=== PATIENT | male | born 1965 | race Caucasian/White ===

== ENCOUNTER 2017-11-09 08:25 | Day surgery (SDC) | payer BC ==
[2017-11-07 10:29] VITALS: BMI 36.0
[~2017-11-09 08:25] MED LIST: LACTATED RINGERS 1,000 ML IV SCH
[2017-11-09] MEDS ORDERED: LIDOCAINE 1% 20 ML VIAL (10MG/ML) FOR IV START INTRADERMA ONE (08:33)
[2017-11-09 08:45] VITALS: TEMP 97.6
[2017-11-09] MEDS ORDERED: LIDOCAINE 1% INJ 10MG/ML (20 ML MDV) ONE (09:19)
[2017-11-09] MEDS ORDERED: PROPOFOL 10 MG/ML 20 ML VIAL IV ONE (09:19)
--- NOTE | 2017-11-09 09:56 | P.PCN ---
Date of Procedure: 11/09/17 Procedure(s) Performed: BRIEF HISTORY: Patient is a 52-year-old pleasant white male, scheduled for an elective colonoscopy as a part of screening for colorectal neoplasia. PROCEDURE PERFORMED: Colonoscopy with snare polypectomy/resolution clip placement.. PREOPERATIVE DIAGNOSIS: Screening for colon cancer. IV sedation per Anesthesia. PROCEDURE: After informed consent was obtained, the patient, was brought into the endoscopy unit. IV sedation was administered by Anesthesia under continuous monitoring. Digital rectal examination was normal. Initially the Olympus CF- 160 flexible video colonoscope was then inserted in the rectum, gradually advanced into the cecum without any difficulty. Careful examination was performed as the scope was gradually being withdrawn. Ileocecal valve and the appendiceal orifice were visualized and appeared normal. Prep was excellent. Mucosa of the cecum, ascending colon, transverse colon, descending colon, appeared normal. In the proximal sigmoid colon at 40 cm from the anal verge, there was a 2.5 cm pedunculated polyp that was removed by snare polypectomy. Following the polypectomy there was some oozing identified and hence resolution clip was placed with good hemostasis. sigmoid colon, and rectum appeared normal. Retroflexion was performed in the rectum and no lesions were seen. The patient tolerated the procedure well. IMPRESSION: 2.5 cm pedunculated proximal sigmoid colon polyp status post polypectomy/ resolution clip placement Rest of the colon appeared normal RECOMMENDATIONS: Findings of this examination were discussed with the patient as well as his family. He was advised to follow with the biopsy results. If the biopsy shows a tubular adenoma he can have a repeat colonoscopy in 3 years.
[2017-11-09 10:08] VITALS: BP 129/80; PULSE 64; RESP 18
== END 2017-11-09 10:36 | disposition home or self-care (01) ==
LOC: ORWHC2ENDO 08:25
PROVIDERS: ATTEND Internal Medicine Gastroenterology
DX: Z12.11 Encounter for screening for malignant neoplasm of colon (principal); D12.5 Benign neoplasm of sigmoid colon; G47.33 Obstructive sleep apnea (adult) (pediatric); Z99.89 Dependence on other enabling machines and devices; Z88.0 Allergy status to penicillin
CPT/HCPCS: 88305; 45385; J2001; J2704; 45382

== ENCOUNTER 2018-08-23 12:07 | Inpatient (IN) | payer BC ==
[2018-08-23 13:18] LABS: Basophils # (A) 0.1 k/uL (0-0.2); Basophils % (A) 1 %; Eosinophils # (A) 0.3 k/uL (0-0.7); Eosinophils % (A) 3 %; HCT 47.4 % (39.0-53.0); HGB 15.5 gm/dL (13.0-17.5); Lymphocytes # (A) 1.3 k/uL (1.0-4.8); Lymphocytes % (A) 15 %; MCH 28.8 pg (25.0-35.0); MCHC 32.8 g/dL (31.0-37.0); MCV 87.9 fL (80.0-100.0); Monocytes # (A) 0.5 k/uL (0-1.0); Monocytes % (A) 6 %; Neutrophils # (A) 6.4 k/uL (1.3-7.7); Neutrophils % (A) 75 %; Platelet Count 214 k/uL (150-450); RBC 5.39 m/uL (4.30-5.90); RDW 13.5 % (11.5-15.5); WBC 8.6 k/uL (3.8-10.6)
[2018-08-23 13:32] LABS: ALT 283 U/L (21-72); AST 381 U/L (17-59); Alkaline Phosphatase 40 U/L (38-126); Anion Gap 5 mmol/L; Blood Urea Nitrogen 18 mg/dL (9-20); Calcium 9.3 mg/dL (8.4-10.2); Carbon Dioxide 27 mmol/L (22-30); Chloride 107 mmol/L (98-107); Glucose 94 mg/dL (74-99); Potassium 4.5 mmol/L (3.5-5.1); Sodium 139 mmol/L (137-145); Total Protein 6.9 g/dL (6.3-8.2)
[2018-08-23 14:10] LABS: Partial Thromboplastin Time 23.6 sec (22.0-30.0); Prothrombin Time 10.2 sec (9.0-12.0)
--- NOTE | 2018-08-23 14:37 | ED ---
Recheck HPI <Cristino Jackson - Last Filed: 08/23/18 15:05> - General Source: patient, RN notes reviewed Mode of arrival: ambulatory Limitations: no limitations <Javier Rose - Last Filed: 08/23/18 15:12> - General Chief Complaint: Recheck/Abnormal Lab/Rx Stated Complaint: abn labs Time Seen by Provider: 08/23/18 13:32 - History of Present Illness Initial Comments: 53-year-old male presents emergency Department chief complaint of abnormal labs. Patient states that over the last 4-6 week she's felt fatigued states that muscle aches and does not have the energy used to have. Patient states her menses PCP on Sunday had lab work drawn and notified today that he had elevated liver enzymes and elevated CK. Patient states that he was placed on awake possibly around this time but states he has not recently been taken it. Patient denies any medications for cholesterol including any statin. He does take a multivitamin. Patient denies any history of autoimmune disease. Denies any history of liver disease. Patient states that he noticed that at work he does not have his usual strength equal times fatigued very early and also when he is trying to work out. Patient denies any supplements including pre or postwork out medications. (Javier Rose) - Related Data Home Medications Medication Instructions Recorded Confirmed Hemp Oil 2 dropper SL DAILY 08/23/18 08/23/18 Ibuprofen [Motrin Ib] 800 mg PO Q6H PRN 08/23/18 08/23/18 Naproxen Sodium [Aleve] 440 mg PO DAILY PRN 08/23/18 08/23/18 Allergies Allergy/AdvReac Type Severity Reaction Status Date / Time Penicillins Allergy Rash/Hives Verified 08/23/18 14:20 Review of Systems ROS Other: All systems not noted in ROS Statement are negative. <Cristino Jackson - Last Filed: 08/23/18 15:05> ROS Other: All systems not noted in ROS Statement are negative. <Javier Rose - Last Filed: 08/23/18 15:12> ROS Statement: Those systems with pertinent positive or pertinent negative responses have been documented in the HPI. Past Medical History Past Medical History: Osteoarthritis (OA), Sleep Apnea/CPAP/BIPAP Additional Past Medical History / Comment(s): blood in stool, "staph in infection after knee surgery at age 20" does not know what organism History of Any Multi-Drug Resistant Organisms: None Reported Past Surgical History: Back Surgery, Hernia Repair, Orthopedic Surgery Additional Past Surgical History / Comment(s): shruthi knee "partial replacements", total 5 knee surgeries, growth from throat removed, cyst removed from back Past Anesthesia/Blood Transfusion Reactions: No Reported Reaction Past Psychological History: No Psychological Hx Reported Smoking Status: Former smoker - Past Family History Mother Family Medical History: Pulmonary Embolus <Javier Rose - Last Filed: 08/23/18 15:12> General Exam Limitations: no limitations General appearance: alert, in no apparent distress Head exam: Present: atraumatic, normocephalic, normal inspection Eye exam: Present: normal appearance, PERRL, EOMI. Absent: scleral icterus, conjunctival injection, periorbital swelling ENT exam: Present: normal exam, normal oropharynx, mucous membranes moist Neck exam: Present: normal inspection. Absent: tenderness, meningismus, lymphadenopathy Respiratory exam: Present: normal lung sounds bilaterally. Absent: respiratory distress, wheezes, rales, rhonchi, stridor Cardiovascular Exam: Present: regular rate, normal rhythm, normal heart sounds. Absent: systolic murmur, diastolic murmur, rubs, gallop, clicks GI/Abdominal exam: Present: soft, normal bowel sounds. Absent: distended, tenderness, guarding, rebound, rigid Neurological exam: Present: alert, oriented X3, CN II-XII intact Skin exam: Present: warm, dry, intact, normal color. Absent: rash <Javier Rose - Last Filed: 08/23/18 15:12> Course <Cristino Jackson - Last Filed: 08/23/18 15:05> <Javier Rose - Last Filed: 08/23/18 15:12> Vital Signs 08/23/18 12:43 Temperature 98.2 F Pulse Rate 77 Respiratory 16 Rate Blood Pressure 148/82 O2 Sat by Pulse 96 Oximetry - Reevaluation(s) Reevaluation #1: 08/23/18 15:05 PA supervision: I personally evaluate the patient and did discuss findings with him he states he had increased EKG and liver enzymes he's had fatigue over last several weeks he was advised doctor for further evaluation is found to be in rhabdomyolysis today. The etiology is unclear he will be admitted. Case is discussed with Dr. Coughlin. (Cristino Jackson) Medical Decision Making - Lab Data Result diagrams: 08/23/18 12:59 08/23/18 12:59 <Cristino Jackson - Last Filed: 08/23/18 15:05> - Lab Data Result diagrams: 08/23/18 12:59 08/23/18 12:59 <Javier Rose - Last Filed: 08/23/18 15:12> - Medical Decision Making 53-year-old male present emergency from for elevated CK and liver enzymes. Patient's CK is elevated from 7000 - 9000 since Sunday. Patient will be hydrated and admitted at this time. (Javier Rose) - Lab Data Lab Results 08/23/18 08/23/18 08/23/18 Range/Units 12:59 12:59 12:59 WBC 8.6 (3.8-10.6) k/uL RBC 5.39 (4.30-5.90) m/uL Hgb 15.5 (13.0-17.5) gm/dL Hct 47.4 (39.0-53.0) % MCV 87.9 (80.0-100.0) fL MCH 28.8 (25.0-35.0) pg MCHC 32.8 (31.0-37.0) g/dL RDW 13.5 (11.5-15.5) % Plt Count 214 (150-450) k/uL Neutrophils % 75 % Lymphocytes % 15 % Monocytes % 6 % Eosinophils % 3 % Basophils % 1 % Neutrophils # 6.4 (1.3-7.7) k/uL Lymphocytes # 1.3 (1.0-4.8) k/uL Monocytes # 0.5 (0-1.0) k/uL Eosinophils # 0.3 (0-0.7) k/uL Basophils # 0.1 (0-0.2) k/uL PT (9.0-12.0) sec INR (<1.2) APTT (22.0-30.0) sec Sodium 139 (137-145) mmol/L Potassium 4.5 (3.5-5.1) mmol/L Chloride 107 (98-107) mmol/L Carbon Dioxide 27 (22-30) mmol/L Anion Gap 5 mmol/L BUN 18 (9-20) mg/dL Creatinine 0.81 (0.66-1.25) mg/dL Est GFR (CKD-EPI)AfAm >90 (>60 ml/min/1.73 sqM) Est GFR (CKD-EPI)NonAf >90 (>60 ml/min/1.73 sqM) Glucose 94 (74-99) mg/dL Calcium 9.3 (8.4-10.2) mg/dL Total Bilirubin 1.0 (0.2-1.3) mg/dL AST 381 H (17-59) U/L ALT 283 H (21-72) U/L Alkaline Phosphatase 40 (38-126) U/L Creatine Kinase 9067 H* (55-170) U/L C-Reactive Protein (<10.0) mg/L Total Protein 6.9 (6.3-8.2) g/dL Albumin 4.0 (3.5-5.0) g/dL Hepatitis A IgM Ab 08/23/18 08/23/18 08/23/18 Range/Units 12:59 12:59 13:56 WBC (3.8-10.6) k/uL RBC (4.30-5.90) m/uL Hgb (13.0-17.5) gm/dL Hct (39.0-53.0) % MCV (80.0-100.0) fL MCH (25.0-35.0) pg MCHC (31.0-37.0) g/dL RDW (11.5-15.5) % Plt Count (150-450) k/uL Neutrophils % % Lymphocytes % % Monocytes % % Eosinophils % % Basophils % % Neutrophils # (1.3-7.7) k/uL Lymphocytes # (1.0-4.8) k/uL Monocytes # (0-1.0) k/uL Eosinophils # (0-0.7) k/uL Basophils # (0-0.2) k/uL PT 10.2 (9.0-12.0) sec INR 1.0 (<1.2) APTT 23.6 (22.0-30.0) sec Sodium (137-145) mmol/L Potassium (3.5-5.1) mmol/L Chloride (98-107) mmol/L Carbon Dioxide (22-30) mmol/L Anion Gap mmol/L BUN (9-20) mg/dL Creatinine (0.66-1.25) mg/dL Est GFR (CKD-EPI)AfAm (>60 ml/min/1.73 sqM) Est GFR (CKD-EPI)NonAf (>60 ml/min/1.73 sqM) Glucose (74-99) mg/dL Calcium (8.4-10.2) mg/dL Total Bilirubin (0.2-1.3) mg/dL AST (17-59) U/L ALT (21-72) U/L Alkaline Phosphatase (38-126) U/L Creatine Kinase (55-170) U/L C-Reactive Protein <5.0 (<10.0) mg/L Total Protein (6.3-8.2) g/dL Albumin (3.5-5.0) g/dL Hepatitis A IgM Ab NEGATIVE Disposition <Cristino Jackson - Last Filed: 08/23/18 15:05> <Javier Rose - Last Filed: 08/23/18 15:12> Clinical Impression: Rhabdomyolysis, Elevated LFTs Disposition: ADMITTED IP TO THIS HOSP Condition: Fair Referrals: Pamela Aguilar DO [Primary Care Provider] - 1-2 days
[2018-08-23] MEDS ORDERED: SODIUM CHLORIDE 0.9% 2,000 ML IV ONE (14:49)
[2018-08-23 14:50] LABS: Hepatitis A AB IgM Index 0.01; Hepatitis A Antibody IgM NEGATIVE
[2018-08-23] MEDS ORDERED: SODIUM CHLORIDE 0.9% 1,000 ML IV SCH (15:00)
[2018-08-23] MEDS ORDERED: NALOXONE 0.4 MG/ML 1 ML VIAL IV PRN ×2 (15:13→21:03)
[2018-08-23 19:05] VITALS: BMI 34.4
[2018-08-23] MEDS ORDERED: MAGNESIUM HYDROXIDE 2,400 MG/10 ML CUP PO PRN (21:03)
[2018-08-23] MEDS ORDERED: LACTULOSE 20 GM/30 ML CUP PO PRN (21:03)
[2018-08-23] MEDS ORDERED: CALCIUM CARBONATE 500 MG CHEWABLE PO PRN (21:03)
[2018-08-23] MEDS: traMADol 50 MG TAB PO PRN (21:14)
[2018-08-23] MEDS: FUROSEMIDE 20 MG TAB PO SCH (21:14)
[2018-08-23] MEDS: LACTATED RINGERS 1,000 ML IV SCH (21:16)
[2018-08-23] MEDS: MELATONIN 3 MG TABLET PO PRN (22:19)
[2018-08-23] MEDS: NAPROXEN 250 MG TAB PO SCH (22:19)
--- NOTE | 2018-08-23 22:42 | HP ---
HISTORY AND PHYSICAL DATE OF ADMISSION: 08/23/2018 PRESENTING COMPLAINT: Achiness all over. HISTORY OF PRESENTING COMPLAINT: This is a very pleasant 53-year-old patient of Dr. Pamela Aguilar. Patient has been in good health otherwise. He is here with his . Patient for about a month has been noticing that his muscle ache. Initially it used to be his thighs; now also upper extremities. Patient gets tired rather easily. He used to work out, but he feels that he gets easily fatigued. Therefore he got his blood work checked, was found to have a CPK of over 9000. Hence he was sent in for the same. The patient has obstructive sleep apnea but is not able use his mask for more than one hour typically and does not sleep well and is rather sleep-deprived. The patient was admitted with acute rhabdomyolysis. He denies taking any protein supplements. Denies any other medical problems. REVIEW OF SYSTEMS: CONSTITUTIONAL: Tired. HEENT: None. RESPIRATORY: None. CARDIOVASCULAR: None. GASTROINTESTINAL: Bloats easily. GENITOURINARY: None. MUSCULOSKELETAL: Aches and pains in the muscles. DERMATOLOGICAL: None. HEMATOLOGICAL: None. LYMPHATICS: None. PSYCHIATRY: None. NEUROLOGICAL: None. PAST MEDICAL HISTORY: 1. Osteoarthritis. 2. Obstructive sleep apnea. PAST SURGICAL HISTORY: 1. Back surgery. 2. Hernia repair. 3. Bilateral partial knee replacement. 4. Total 5 knee surgeries. SOCIAL HISTORY: Does not smoke. Alcohol occasionally. Patient is a norberto by trade. . FAMILY HISTORY: PE, vascular disorder. HOME MEDICATIONS: 1. Naproxen p.r.n. 2. Hemp oil. ALLERGIES: PENICILLIN. PHYSICAL EXAMINATION: Temperature 98.6, pulse 70, respiration 18, blood pressure 110/70, pulse ox 95% on room air. GENERAL APPEARANCE: Well built; BMI 34.5. Sitting up. Tired-appearing. EYES: Pupils equal. Conjunctivae normal. HEENT: External appearance of nose and ears normal. Oral cavity normal. Patient has bags under his eyes. NECK: JVD not raised. Mass not palpable. RESPIRATORY: Effort normal. Lungs are clear. CARDIOVASCULAR: First and second sounds normal. No edema. ABDOMEN: Soft, non-tender. Liver and spleen not palpable. LYMPHATIC: No lymph node palpable in neck or axillae. PSYCHIATRY: Alert and oriented x3. Mood and affect normal. NEUROLOGICAL: Pupils equal. Cranial nerves grossly intact. Power and sensation grossly intact. INVESTIGATIONS: White count 8.6, hemoglobin 15.5, potassium 4.5. BUN and creatinine are normal. AST 381, ALT 383. CPK 9067. ASSESSMENT: 1. Acute rhabdomyolysis, probably on chronic, from a patient who does Pearl[employer] work. I do not see any other secondary factor for the same. Patient's oral intake of fluids is rather low; that may be contributing. 2. Hepatitis, type unknown at this point. 3. Obstructive sleep apnea. Not able to use his mask well. 4. Obesity; body mass index 34.5. 5. Sleep deprivation causing some exhaustion. PLAN: At this point we will start patient on LR at 250 mL/hour. Will also add Lasix 20 mg twice a day for better flushing of the kidneys. Will do a liver ultrasound and also do a hepatitis profile. I did talk to him about changing his face mask eventually. Lovenox for DVT prophylaxis. Patient will probably need to stay in the hospital for at least 2 nights. MMODL / IJN: [id number] /
[2018-08-24] MEDS: LACTATED RINGERS 1,000 ML IV SCH ×6 (01:38→21:15)
[2018-08-24 04:44] LABS: Hepatitis B Core IgM Non-Reactive (Non-Reactive)
[2018-08-24] MEDS: traMADol 50 MG TAB PO PRN (04:52)
--- NOTE | 2018-08-24 08:55 | US ---
EXAMINATION TYPE: US abdomen limited DATE OF EXAM: 08/24/2018 COMPARISON: NONE CLINICAL HISTORY: elevated liver enzymes. larger habitus EXAM MEASUREMENTS: Liver Length: 19.8 cm Gallbladder Wall: 0.3 cm CBD: 0.5 cm Right Kidney: 12.7 x 5.2 x 6.4 cm Pancreas: Obscured by bowel gas Liver: attenuating, sparing by bonifacio, hepatomegaly Gallbladder: wnl Evidence for sonographic Kimball's sign: no CBD: wnl Right Kidney: seen with a non-shadowing 6mm echogenic foci within the upper pole The pancreas was not visualized. The liver is prominent measuring 20 cm and is attenuating and may be fatty infiltrated. The gallbladder is unremarkable. The gallbladder wall measures 3 mm. The distal common hepatic duct m easures 5 mm. There is no sonographic Kimball's sign. There is a 6 mm nonobstructing calculus in the upper pole of the right kidney. IMPRESSION: 1. MILD HEPATOMEGALY AND FATTY INFILTRATION OF THE LIVER. 2. NONOBSTRUCTING RIGHT-SIDED NEPHROLITHIASIS.
[2018-08-24] MEDS: FUROSEMIDE 20 MG TAB PO SCH ×2 (09:13→16:35)
[2018-08-24] MEDS: NAPROXEN 250 MG TAB PO SCH ×2 (09:14→16:35)
[2018-08-24] MEDS: ENOXAPARIN 40 MG/0.4 ML SYRINGE SQ SCH (09:15)
[2018-08-24 18:47] LABS: Hepatitis B Surface AB- Quant 3.5 mIU/mL; Hepatitis C IgG Antibody Non-Reactive (Non-Reactive)
[2018-08-24] MEDS: MELATONIN 3 MG TABLET PO PRN (21:10)
--- NOTE | 2018-08-24 22:04 | PN ---
PROGRESS NOTE DATE OF SERVICE: August 24, 2018. PRESENTING COMPLAINT: Achy muscle. INTERVAL HISTORY: The patient presented with acute rhabdomyolysis, is on high IV fluids, Lasix, muscle aching is a bit better. CPK started to come down. Did tolerate a diet. REVIEW OF SYSTEMS: Done for constitutional, cardiovascular, GI, pulmonary, musculoskeletal and relevant findings as above. CURRENT MEDICATIONS: Include Lasix 20 mg p.o. b.i.d., and IV fluids at 250 mL an hour. PHYSICAL EXAMINATION: VITAL SIGNS: Temperature 97, pulse 73, respiratory rate 20, blood pressure 105/69, pulse ox 95% on room air. GENERAL APPEARANCE: Sitting up, comfortable. EYES: Pupils equal. Conjunctivae normal. HEENT: External appearance of nose and ears normal. Oral cavity normal. NECK: JVD not raised. Mass not palpable. RESPIRATORY: Effort normal. LUNGS are clear. CARDIOVASCULAR: 1st and 2nd sounds normal. No edema. ABDOMEN: Soft. Nontender. Liver and spleen not palpable. PSYCHIATRY: Alert and oriented x3. Mood and affect normal. INVESTIGATIONS: CPK 5317. Hepatitis screen nonreactive. Liver ultrasound shows fatty infiltration and nonobstructive right-sided nephrolithiasis. ASSESSMENT: 1. Acute rhabdomyolysis, slow to respond. 2. Hepatic steatosis. 3. Nonobstructive right-sided nephrolithiasis. 4. Obstructive sleep apnea, not able to use his mask well. 5. Sleep deprivation causing some exhaustion. PLAN: I had a lengthy talk with the patient's again today. We will put the patient on a heart healthy diet to restrict calories. Also have a dietitian see him for weight loss measures. We will have him see Gastroenterology after discharge. In the meantime, continue with heavy IV fluids. Repeat CPK again. Questions were answered. MMODL / IJN: [id number] /
[2018-08-25] MEDS: LACTATED RINGERS 1,000 ML IV SCH ×6 (03:35→21:01)
[2018-08-25] MEDS: traMADol 50 MG TAB PO PRN (06:49)
[2018-08-25] MEDS: NAPROXEN 250 MG TAB PO SCH ×2 (08:01→18:43)
[2018-08-25] MEDS: FUROSEMIDE 20 MG TAB PO SCH ×2 (08:01→15:16)
[2018-08-25] MEDS: ENOXAPARIN 40 MG/0.4 ML SYRINGE SQ SCH (08:01)
[2018-08-25 08:54] LABS: ALT 244 U/L (21-72); AST 284 U/L (17-59); Albumin 3.5 g/dL (3.5-5.0); Alkaline Phosphatase 39 U/L (38-126); Anion Gap 4 mmol/L; Blood Urea Nitrogen 14 mg/dL (9-20); Calcium 8.8 mg/dL (8.4-10.2); Carbon Dioxide 30 mmol/L (22-30); Chloride 106 mmol/L (98-107); Glucose 119 mg/dL (74-99); Potassium 4.3 mmol/L (3.5-5.1); Sodium 140 mmol/L (137-145); Total Bilirubin 1.1 mg/dL (0.2-1.3); Total Protein 6.3 g/dL (6.3-8.2)
[2018-08-25 09:21] LABS: Creatine Kinase 5496 U/L (55-170)
--- NOTE | 2018-08-25 21:50 | PN ---
PROGRESS NOTE DATE OF SERVICE: 08/25/2018. PRESENTING COMPLAINT: Aching. INTERVAL HISTORY: This patient presented with acute rhabdomyolysis. Remains on IV fluids. Achiness in the muscles still present. Also got fatty liver. REVIEW OF SYSTEMS: Done for constitutional, cardiovascular, GI, pulmonary; relevant findings as above. CURRENT MEDICATIONS: Reviewed, that include IV fluids and p.o. Lasix. PHYSICAL EXAMINATION: Temperature 97.9, pulse 61, respirations 16, blood pressure 124/82, pulse ox 96% on room air. GENERAL APPEARANCE: Sitting up in a chair, comfortable. EYES: Pupils are equal. Conjunctivae normal. HEENT: External appearance of nose and ears normal. Oral cavity normal. NECK: JVD not raised. Mass not palpable. Respiratory effort normal. LUNGS: Clear. CARDIOVASCULAR: 1st and 2nd heart sounds. No edema. ABDOMEN: Soft, nontender. Liver and spleen not palpable. PSYCHIATRY: Alert and oriented x3. Mood and affect normal. INVESTIGATIONS: AST 284, ALT 244. CPK is 5496. ASSESSMENT: 1. Acute rhabdomyolysis, slow to respond. 2. Hepatic steatosis. 3. Nonobstructive right-sided nephrolithiasis. 4. Obstructive sleep apnea, not able to use his mask well. 5. Sleep deprivation causing some exhaustion. I had a lengthy talk again with the patient and explained to him what is going on and told him this is the current treatment. Follow labs closely. KARELY / BALTAN: [id number] /
[2018-08-25] MEDS: MELATONIN 3 MG TABLET PO PRN (22:01)
[2018-08-26] MEDS: LACTATED RINGERS 1,000 ML IV SCH ×7 (05:34→23:06)
[2018-08-26] MEDS: ENOXAPARIN 40 MG/0.4 ML SYRINGE SQ SCH (07:58)
[2018-08-26] MEDS: FUROSEMIDE 20 MG TAB PO SCH ×2 (07:59→17:36)
[2018-08-26] MEDS: NAPROXEN 250 MG TAB PO SCH (07:59)
[2018-08-26 09:45] LABS: Anion Gap 4 mmol/L; Blood Urea Nitrogen 14 mg/dL (9-20); Calcium 8.8 mg/dL (8.4-10.2); Sodium 140 mmol/L (137-145)
[2018-08-26 10:14] LABS: Carbon Dioxide 30 mmol/L (22-30); Chloride 106 mmol/L (98-107); Glucose 120 mg/dL (74-99); Potassium 4.1 mmol/L (3.5-5.1)
[2018-08-26 10:38] LABS: Creatine Kinase 5492 U/L (55-170)
[2018-08-26 13:52] LABS: Basophils # (A) 0.1 k/uL (0-0.2); Basophils % (A) 1 %; Eosinophils # (A) 0.2 k/uL (0-0.7); Eosinophils % (A) 3 %; HCT 46.1 % (39.0-53.0); HGB 14.8 gm/dL (13.0-17.5); Lymphocytes # (A) 0.9 k/uL (1.0-4.8); Lymphocytes % (A) 19 %; MCH 28.6 pg (25.0-35.0); MCHC 32.1 g/dL (31.0-37.0); MCV 89.2 fL (80.0-100.0); Mean Platelet Volume 6.5; Monocytes # (A) 0.3 k/uL (0-1.0); Monocytes % (A) 7 %; Neutrophils # (A) 3.3 k/uL (1.3-7.7); Neutrophils % (A) 68 %; Platelet Count 196 k/uL (150-450); RBC 5.17 m/uL (4.30-5.90); RDW 13.3 % (11.5-15.5); WBC 4.9 k/uL (3.8-10.6)
[2018-08-26 14:34] LABS: ALT 241 U/L (21-72); AST 286 U/L (17-59); Albumin 3.5 g/dL (3.5-5.0); Alkaline Phosphatase 44 U/L (38-126); C Reactive Protein 5.4 mg/L (<10.0); Total Bilirubin 0.9 mg/dL (0.2-1.3); Total Protein 6.2 g/dL (6.3-8.2); Uric Acid 7.3 mg/dL (3.5-8.5)
[2018-08-26 14:55] LABS: LDH 2356 U/L (313-618)
[2018-08-26 15:38] LABS: Appearance,Urine Clear (Clear); Bilirubin,Urine Negative (Negative); Blood,Urine Trace (Negative); Color,Urine Light Yellow; Glucose,Urine (UA) Negative (Negative); Ketones,Urine Negative (Negative); Leukocyte Esterase,Urine Negative (Negative); Nitrite,Urine Negative (Negative); PH, Urine 7.5 (5.0-8.0); Protein,Urine Negative (Negative); RBC,Urine 1 /hpf (0-5); Specific Gravity,Urine 1.006 (1.001-1.035); Urobilinogen,Urine <2.0 mg/dL (<2.0); WBC,Urine <1 /hpf (0-5)
--- NOTE | 2018-08-26 16:30 | P.CONS ---
History of Present Illness - Reason for Consult Consult date: 08/26/18 elevated muscle enzymes Requesting physician: Homero Coughlin - Chief Complaint weakness, fatigue - History of Present Illness Patient is seen today's inpatient consult for elevated creatine kinase and liver enzymes. Patient is a 53-year-old male who presented to the emergency room after seeing primary care for weakness and fatigue is ongoing for the past 4-6 weeks. 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 Patient had laboratory done by primary care doctor she'll and was sent to ER on August 23. Patient has not been on a statin. Patient generally does not have joint complaints or issues with stiffness or swelling. Patient does take Motrin and Aleve as necessary for pain relief and hasn't taken them for the past 4-6 weeks has not had any relief of these new symptoms with Motrin or Aleve. Patient does have a history of left knee repair x 5 but no replacement. Review of Systems Musculoskeletal: Reports muscle weakness, Reports neck stiffness Past Medical History Past Medical History: Osteoarthritis (OA), Sleep Apnea/CPAP/BIPAP Additional Past Medical History / Comment(s): blood in stool, "staph in infection after knee surgery at age 20" does not know what organism History of Any Multi-Drug Resistant Organisms: None Reported Past Surgical History: Back Surgery, Hernia Repair, Orthopedic Surgery Additional Past Surgical History / Comment(s): shruthi knee "partial replacements", total 5 knee surgeries, growth from throat removed, cyst removed from back Past Anesthesia/Blood Transfusion Reactions: No Reported Reaction Past Psychological History: No Psychological Hx Reported Smoking Status: Former smoker Past Alcohol Use History: Occasional Additional Past Alcohol Use History / Comment(s): quit smoking 20 yrs ago, smoked for a couple yrs, < 1 PPD Past Drug Use History: None Reported - Past Family History Mother Family Medical History: Pulmonary Embolus, Vascular Disorder Additional Family Medical History / Comment(s): mother and father Medications and Allergies Home Medications Medication Instructions Recorded Confirmed Type Hemp Oil 2 dropper SL DAILY 08/23/18 08/23/18 History Ibuprofen [Motrin Ib] 800 mg PO Q6H PRN 08/23/18 08/23/18 History Naproxen Sodium [Aleve] 440 mg PO DAILY PRN 08/23/18 08/23/18 History Allergies Allergy/AdvReac Type Severity Reaction Status Date / Time Penicillins Allergy Rash/Hives Verified 08/23/18 14:20 Physical Exam Vitals: Vital Signs Temp Pulse Resp BP Pulse Ox 08/26/18 08:00 16 08/26/18 07:00 97.7 F 70 16 133/86 97 08/25/18 23:42 98.7 F 83 14 136/85 95 08/25/18 15:55 97.9 F 61 16 124/82 96 08/25/18 15:54 16 Intake and Output 08/25/18 08/26/18 08/26/18 22:59 06:59 14:59 Other: # Voids 2 4 - Constitutional General appearance: average body habitus - Respiratory Respiratory: right: CTA - Cardiovascular Rhythm: regular Heart sounds: normal: S1, S2 - Musculoskeletal surgical scar on left knee medial aspect Musculoskeletal: strength equal bilaterally (no evidence of synoviits.) - Psychiatric Psychiatric: A&O x's 3 Results CBC & Chem 7: 08/26/18 08:29 08/26/18 08:29 Labs: Abnormal Lab Results - Last 24 Hours (Table) 08/26/18 Range/Units 08:29 Glucose 120 H (74-99) mg/dL Creatine Kinase 5492 H* (55-170) U/L Assessment and Plan Assessment: On physical exam resolving evidence of synovitis. Patient does have surgical scar of left knee. Patient does have equal strength bilateral upper and lower extremities and is able to stand from seated position without using any other support. On presentation in the ER patient's CK was elevated 9067 which has improved to 5000 492. Patient's AST was elevated 381 and AST elevated 23 in the ER and AST has recently improved to 84 and ALT has improved to 244. Patient's creatinine has been normal and most recently 0.76. Hepatitis panel was negative. CRP was normal. Patient has been on Lasix and lactated Ringer's through internal medicine. (1) Rhabdomyolysis Current Visit: Yes Status: Acute Priority: High Code(s): M62.82 - RHABDOMYOLYSIS SNOMED Code(s): 782664771 (2) Elevated LFTs Current Visit: Yes Status: Acute Priority: High Code(s): R94.5 - ABNORMAL RESULTS OF LIVER FUNCTION STUDIES SNOMED Code(s): 502786027 (3) Weakness Current Visit: Yes Status: Acute Code(s): R53.1 - WEAKNESS SNOMED Code(s) : 70348936 (4) Arthritis, multiple joint involvement Current Visit: Yes Status: Chronic Code(s): M12.9 - ARTHROPATHY, UNSPECIFIED SNOMED Code(s): 86833968 Plan: Today I'll order complete panel which includes aldolase and ESR and we'll also order myositis antibody testing, to rule out myositis or polymyalgia rheumatica or other connective tissue disease. Patient will certainly need EMG and muscle biopsy and this can be done as outpatient. Labs may take up to 2 weeks to return and patient may be discharged when appropriate per internal medicine and based on muscle biopsy or lab results may follow-up with our office as outpatient. Patient should be continued on LR and Lasix. Time with Patient: Greater than 30
[2018-08-26 16:34] LABS: Erythrocyte Sedimentation Rate 2 mm/hr (0-15)
--- NOTE | 2018-08-26 17:36 | PN ---
PROGRESS NOTE DATE OF SERVICE: 08/26/2018 PRESENTING COMPLAINT: Aching muscles. INTERVAL HISTORY: This patient presented with acute on chronic rhabdomyolysis from excessive muscle use. He is a norberto. IV fluids were increased yesterday. Achiness is still present, though it feels a bit better. His is at the bedside. He is making good urine. REVIEW OF SYSTEMS: Done for constitutional, cardiovascular, GI, pulmonary; relevant findings as above. CURRENT MEDICATIONS: Reviewed. They include lactated Ringer's and p.o. Lasix. PHYSICAL EXAMINATION: Temperature 98.2, pulse 71, respiration 18, blood pressure 127/85, pulse ox 96% on room air. GENERAL APPEARANCE: Sitting up on a chair, comfortable. EYES: Pupils equal. Conjunctivae normal. HEENT: External appearance of nose and ears normal. Oral cavity normal. NECK: JVD not raised. Mass not palpable. RESPIRATORY: Effort normal. Lungs are clear. CARDIOVASCULAR: First and second sounds normal. No edema. ABDOMEN: Soft, non-tender. Liver and spleen not palpable. PSYCHIATRY: Alert and oriented x3. Mood and affect normal. MUSCULOSKELETAL: Minimal muscle tenderness. INVESTIGATIONS: White count 4.9, hemoglobin 14.8, potassium 4.1. BUN and creatinine are normal. CPK is 5492. LDH is 2356. UA is showing trace blood, RBCs 1. Urine specific gravity is 1.006. ASSESSMENT: 1. Acute rhabdomyolysis from chronic muscle overuse, still responding. 2. Hepatic steatosis. 3. Nonobstructive right-sided nephrolithiasis. 4. Obstructive sleep apnea. Not able to use a mask well. 5. Sleep deprivation causing some exhaustion. PLAN: I had a long talk with the patient and his . I did tell them that the IV fluids are helping to keep the CPK low because the muscle overuse has been over quite a period of time. This may take a while before it comes down. Overnight we had increased the IV fluids. We will keep it up for a bit more today, then drop it down. Rheumatology was consulted. They will see the patient today. Of course, patient is anxious to go home. Did explain that there is nothing else to do to hurry this process. MMODL / IJN: [id number] /
[2018-08-26 18:27] LABS: Rheumatoid Factor <4 IU/mL (0-15)
[2018-08-26 20:54] LABS: Centromere Antibody Interp NEGATIVE (NEGATIVE); Cyclic Citrullinated Pep IgG NEGATIVE (NEGATIVE); DNA Double-Stranded NEGATIVE (NEGATIVE); RNP 0.2 AI; Scleroderma SC-70 Ab <0.2 AI
[2018-08-26] MEDS: MELATONIN 3 MG TABLET PO PRN (23:19)
[2018-08-27 04:48] LABS: Aldolase 72.3 U/L (1.2-7.6)
[2018-08-27 04:49] LABS: Angiotensin-1 Converting Enz. 21 U/L (8-52)
[2018-08-27] MEDS: LACTATED RINGERS 1,000 ML IV SCH ×6 (05:14→20:59)
[2018-08-27] MEDS: ENOXAPARIN 40 MG/0.4 ML SYRINGE SQ SCH (08:19)
[2018-08-27 10:37] LABS: APTT 42 Sec(s) (<43); Dilute Russell Viper Venom 38 Sec(s) (<44)
[2018-08-27 10:59] LABS: Anion Gap 5 mmol/L; Blood Urea Nitrogen 13 mg/dL (9-20); Calcium 9.1 mg/dL (8.4-10.2); Carbon Dioxide 28 mmol/L (22-30); Chloride 107 mmol/L (98-107); Glucose 93 mg/dL (74-99); Potassium 4.3 mmol/L (3.5-5.1); Sodium 140 mmol/L (137-145)
[2018-08-27 11:46] LABS: Creatine Kinase 5914 U/L (55-170)
[2018-08-27 12:30] LABS: HLA B27 NEGATIVE
[2018-08-27 13:31] LABS: C-ANCA <1:20 Titer (<1:20); P-ANCA <1:20 Titer (<1:20)
[2018-08-27] MEDS: traMADol 50 MG TAB PO PRN (18:03)
--- NOTE | 2018-08-27 22:34 | PN ---
PROGRESS NOTE DATE OF SERVICE: 08/27/2018 PRESENTING COMPLAINT: Aching muscles. INTERVAL HISTORY: Patient presented with acute on chronic rhabdomyolysis from excessive muscle use as a norberto. Remains on IV fluids, achiness in the muscles still present. The patient's CPK came back later today after I had seen him at 5900. Also patient was seen by Dr. Weinstein from Rheumatology. REVIEW OF SYSTEMS: Done for constitutional, cardiovascular, GI, pulmonary and relevant findings as above. CURRENT MEDICATIONS: Reviewed that are lactated Ringer's. PHYSICAL EXAMINATION: VITAL SIGNS: On examination, temperature afebrile, pulse 69, respirations 16, blood pressure 137/83, pulse 96% on room air. GENERAL APPEARANCE: Sitting up in a chair, comfortable. EYES: Pupils are equal. Conjunctivae normal. HEENT: External appearance of nose and ears normal. Oral cavity normal. NECK: JVD not raised. Mass not palpable. RESPIRATORY: Effort normal. LUNGS are clear. CARDIOVASCULAR: 1st and 2nd sounds normal. No edema. ABDOMEN: Soft, nontender. Liver and spleen not palpable. PSYCHIATRY: Alert and oriented x3. Mood and affect normal. MUSCULOSKELETAL: Minimal muscle tenderness. INVESTIGATIONS: Potassium 4.3, BUN and creatinine is normal. CPK is 5914. The patient's immunological screen that was done by Rheumatology all came back negative. ASSESSMENT: 1. Acute rhabdomyolysis from chronic muscle overuse, slow to respond. 2. Hepatic steatosis. 3. Nonobstructive right-sided nephrolithiasis. 4. Obstructive sleep apnea, not able to use a mask well. 5. Sleep deprivation causing some exhaustion. PLAN: Again I had a lengthy talk with the patient, discussed with him the clinical picture was pretty much as discussed before and that sometimes it just takes a longer time. As his muscles have been damaged for quite a while it may take some time to recover. The only treatment is to give IV fluids and he has already seen a specialist, Dr. Weinstein. MMODL / BALTAN: [id number] /
[2018-08-28] MEDS: LACTATED RINGERS 1,000 ML IV SCH ×8 (00:57→23:35)
[2018-08-28] MEDS: traMADol 50 MG TAB PO PRN ×2 (00:58→15:14)
[2018-08-28] MEDS: ENOXAPARIN 40 MG/0.4 ML SYRINGE SQ SCH (08:51)
[2018-08-28 11:19] LABS: Anion Gap 5 mmol/L; Blood Urea Nitrogen 11 mg/dL (9-20); Carbon Dioxide 29 mmol/L (22-30); Chloride 102 mmol/L (98-107); Glucose 102 mg/dL (74-99); Potassium 4.4 mmol/L (3.5-5.1); Sodium 136 mmol/L (137-145)
[2018-08-28 12:05] LABS: Creatine Kinase 5121 U/L (55-170)
[2018-08-28] MEDS: ACETAMINOPHEN TAB 325 MG TAB PO PRN ×2 (12:30→20:03)
[2018-08-28 13:40] LABS: Urine Alcohol Negative (Negative); Urine Barbiturate Negative (Negative); Urine Cocaine Negative (Negative); Urine Methadone Negative (Negative); Urine Opiates Negative (Negative); Urine Phencyclidine Negative (Negative)
[2018-08-28] MEDS: MELATONIN 3 MG TABLET PO PRN (20:03)
--- NOTE | 2018-08-28 20:20 | PN ---
PROGRESS NOTE DATE OF SERVICE: 08/28/18 PRESENTING COMPLAINT: Aching muscles. INTERVAL HISTORY: This patient who exerted himself as a norberto, symptoms present for a few weeks, presented with acute on chronic rhabdomyolysis. His initial CPK was 9000, did come down to 5000. Patient getting IV fluids. Patient is feeling somewhat better. The patient does not sleep well because underlying sleep apnea. The patient also seen by Dr. Weinstein from Rheumatology. Getting IV fluids. REVIEW OF SYSTEMS: Done for constitutional, cardiovascular, GI, pulmonary, musculoskeletal; relevant findings as above. Some achiness in muscle still present. CURRENT MEDICATIONS: Reviewed include lactated Ringer's at 250 mL an hour. PHYSICAL EXAMINATION: Temperature 98.8, pulse 71, respirations 16, blood pressure 115/61, pulse ox 96% on room air. GENERAL APPEARANCE: Sitting up in a chair, tired-appearing. EYES: Pupils equal. Conjunctivae normal. HEENT: External appearance of nose and ears normal. Oral cavity normal. NECK: JVD not raised. Mass not palpable. RESPIRATORY: Effort normal. Lungs are clear. CARDIOVASCULAR: First and second sounds normal. No edema. ABDOMEN: Soft, nontender. Liver and spleen not palpable. PSYCHIATRY: Alert and oriented x3. Mood and affect normal. INVESTIGATIONS: Potassium 4.4. Creatine kinase is 5121. ASSESSMENT: 1. Acute rhabdomyolysis from chronic muscle overuse, slow to respond. 2. Hepatic steatosis. 3. Nonobstructive right-sided nephrolithiasis. 4. Obstructive sleep apnea, not able to use his mask very well. 5. Sleep deprivation chronically. PLAN: Again I had a lengthy talk with the patient. I did tell him that my comfort zone was about less than 3000 CPK before I could let him go home and just because his muscles have been so affected over a period of time, it may just take some more time to get better. I did tell him depending on the physician who is covering me, the comfort level. The patient understands the same. Repeat CPK in the morning. The patient was seen by Dr. Weinstein from Rheumatology. MMODL / BALTAN: [id number] /
[2018-08-28] MEDS ORDERED: ONDANSETRON 4 MG/2 ML VIAL IVP PRN (20:48)
[2018-08-29] MEDS: ACETAMINOPHEN TAB 325 MG TAB PO PRN ×2 (02:12→08:12)
[2018-08-29] MEDS: LACTATED RINGERS 1,000 ML IV SCH ×3 (02:12→08:13)
[2018-08-29] MEDS: traMADol 50 MG TAB PO PRN (05:43)
[2018-08-29] MEDS: ENOXAPARIN 40 MG/0.4 ML SYRINGE SQ SCH (08:14)
[2018-08-29 09:38] LABS: Anion Gap 5 mmol/L; Blood Urea Nitrogen 11 mg/dL (9-20); Calcium 8.8 mg/dL (8.4-10.2); Carbon Dioxide 29 mmol/L (22-30); Chloride 105 mmol/L (98-107); Glucose 113 mg/dL (74-99); Potassium 4.1 mmol/L (3.5-5.1); Sodium 139 mmol/L (137-145)
[2018-08-29 10:02] LABS: Creatine Kinase 4832 U/L (55-170)
[2018-08-29 11:08] LABS: ALT 254 U/L (21-72); AST 247 U/L (17-59)
[2018-08-29] MEDS ORDERED: TEMAZEPAM 15 MG CAP PO PRN (11:23)
[2018-08-29] MEDS: DEXTROSE 5% IN WATER 1,000 ML with SODIUM BICARB (1 MEQ/ML) 100 ML IV SCH ×3 (12:04→22:26)
[2018-08-29] MEDS: Acetaminophen-Codeine 300-30mg TAB PO PRN (12:05)
[2018-08-29] MEDS: BUTALB/APAP/CAFF 50-325-40MG TAB PO PRN ×2 (16:32→22:36)
--- NOTE | 2018-08-30 00:51 | PN ---
PROGRESS NOTE DATE OF SERVICE: 08/29/2008 This 53-year-old gentleman was admitted with acute rhabdomyolysis is being closely monitored. Patient also headache and neck pain yesterday. The patient had a creatinine kinase elevated up to 6000 on admission. Currently it is 4833. LFTs are also elevated. PAST MEDICAL HISTORY: Reviewed. REVIEW OF SYSTEMS: CARDIOVASCULAR: No angina. RESPIRATORY: As mentioned. GI: As mentioned earlier. no dysuria. CENTRAL NERVOUS SYSTEM: No numbness or weakness. CURRENT MEDICATIONS ARE: Reviewed and include: 1. Fioricet t.i.d. p.r.n. 2. Lovenox 40 mg subcu daily. 3. Milk of Magnesia. 4. Narcan. 5. Zofran. EXAM: Patient is alert, oriented x2. Pulse 74, blood pressure 136/84, respirations 16 , temperature 98.7, pulse ox 94% on room air. HEENT is conjunctivae normal. Neck : No jugular venous distention. CARDIOVASCULAR: S1, S2. RESPIRATORY: Breath sounds diminished in the bases. A few scattered rhonchi. No crackles. ABDOMEN: Soft, nontender. Legs are no edema. No swelling. LABS: Showed sodium 130, potassium 4.1. ASSESSMENT: 1. Acute rhabdomyolysis from muscle overuse, possibly the exact etiology unclear. 2. Hepatic steatosis. 3. Increased AST/ALT. 4. Nonobstructive right-sided nephrolithiasis. 5. Obstructive sleep apnea. 6. Sleep deprivation history. 7. Hyponatremia, mild. 8. Obesity with body mass of 34.5. RECOMMENDATIONS AND DISCUSSION: In this 53-year-old gentleman who presented with multiple complex medical issues. We will monitor the patient closely, continue the current medications, management and symptomatic treatment. Otherwise, at this time, I recommend continue with IV fluids. See orders for details. Monitor the CK on a regular basis. Recommended avoid dehydration. Otherwise, prognosis guarded. Further recommendations to follow. MMODL / IJN: [id number] / NATALY
[2018-08-30] MEDS: Acetaminophen-Codeine 300-30mg TAB PO PRN ×2 (01:30→08:23)
[2018-08-30] MEDS: DEXTROSE 5% IN WATER 1,000 ML with SODIUM BICARB (1 MEQ/ML) 100 ML IV SCH ×4 (03:25→22:57)
[2018-08-30] MEDS: BUTALB/APAP/CAFF 50-325-40MG TAB PO PRN ×2 (04:15→10:10)
[2018-08-30] MEDS: ENOXAPARIN 40 MG/0.4 ML SYRINGE SQ SCH (08:09)
[2018-08-30 08:56] LABS: Basophils # (A) 0.1 k/uL (0-0.2); Basophils % (A) 1 %; Eosinophils # (A) 0.2 k/uL (0-0.7); Eosinophils % (A) 3 %; HGB 14.9 gm/dL (13.0-17.5); Lymphocytes # (A) 1.2 k/uL (1.0-4.8); Lymphocytes % (A) 18 %; MCH 29.1 pg (25.0-35.0); MCHC 33.1 g/dL (31.0-37.0); MCV 87.7 fL (80.0-100.0); Mean Platelet Volume 5.9; Monocytes # (A) 0.6 k/uL (0-1.0); Monocytes % (A) 9 %; Neutrophils # (A) 4.4 k/uL (1.3-7.7); Neutrophils % (A) 68 %; Platelet Count 190 k/uL (150-450); RBC 5.13 m/uL (4.30-5.90); RDW 13.4 % (11.5-15.5); WBC 6.6 k/uL (3.8-10.6)
[2018-08-30 09:17] LABS: ALT 255 U/L (21-72); AST 256 U/L (17-59); Albumin 3.7 g/dL (3.5-5.0); Alkaline Phosphatase 38 U/L (38-126); Anion Gap 6 mmol/L; Blood Urea Nitrogen 12 mg/dL (9-20); Calcium 8.8 mg/dL (8.4-10.2); Carbon Dioxide 33 mmol/L (22-30); Chloride 101 mmol/L (98-107); Glucose 108 mg/dL (74-99); Potassium 3.7 mmol/L (3.5-5.1); Sodium 140 mmol/L (137-145); Total Bilirubin 1.3 mg/dL (0.2-1.3); Total Protein 6.4 g/dL (6.3-8.2)
[2018-08-30 09:53] LABS: Creatine Kinase 5078 U/L (55-170)
[2018-08-30] MEDS: IOPAMIDOL-300 CONTRAST 30 ML VIAL (ORAL USE) PO PRN ×2 (11:03→12:03)
[2018-08-30] MEDS ORDERED: ALPRAZolam 0.25 MG TAB PO PRN (12:06)
--- NOTE | 2018-08-30 13:14 | CT ---
EXAMINATION TYPE: CT BrainNeckChestAbPel wo con DATE OF EXAM: 08/30/2018 COMPARISON: 02/22/2011 HISTORY: Headache. 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 CT DLP: 3510.9 mGycm Automated exposure control for dose reduction was used. TECHNIQUE: CT of the brain, neck, chest, abdomen, and pelvis was performed without intravenous contra st and with oral contrast. There is limitation of the solid viscera. FINDINGS: BRAIN: There is no acute intracranial hemorrhage, mass effect, or midline shift identified. The vent ricles and sulci are within normal limits in size. The globes are intact and the visualized sinuses are clear. NECK: There is similar fullness at the left lung base in comparison to the prior exam of 02/22/2011. G iven the stability finding suggests posttreatment change. This is marked on series 6 image 51 area pa rotid and submandibular glands are symmetric. True and false focal cords are unremarkable. Probable i nspissated secretions are noted within the left piriform sinus and vallecula. No adenopathy is seen w ithin the neck. Thyroid gland is symmetric and unremarkable. Multilevel mild to moderate degenerative changes of the cervical spine are seen. There is a stable sclerotic lesion of the C3 vertebral body in comparison to 2011. CHEST: There is a 5 mm right middle lobe pulmonary nodule on series 9 image 53 that is nonspecific. T here is also subsegmental bibasilar atelectasis, left greater than right. No pleural effusion or pneu mothorax is seen. Multiple mediastinal lymph nodes are evident measuring up to 1.7 cm and the pretrac heal space and 1.7 cm in the right paratracheal space as well as 1.4 cm in the inferior margin of the aorticopulmonary window. Hilar lymph nodes are difficult to separate from pulmonary vasculature give n lack of intravenous contrast but right hilar adenopathy measures at least 1.3 cm in short axis. Mild degenerative changes of thoracic spine are seen. Heart is not enlarged. ABDOMEN AND PELVIS: The unenhanced liver is of unremarkable morphology and is a generalized decreased attenuation although it is not meet criteria for hepatic steatosis. The spleen is enlarged measuring 15.8 cm in craniocaudal dimension. The unenhanced adrenal glands, pancreas, kidneys, and gallbladder are unremarkable in morphology. No cholelithiasis or nephrolithiasis are seen. Abdominal aorta is of normal course and caliber. The appendix appears surgically absent. Prostate gland is grossly unremarkable as is the urinary blad samson. Moderate amount retained colonic stool is seen, limiting evaluation of the colon. No dilated lar ge or small bowel. Moderate femoral acetabular arthropathy is seen as well as multilevel degenerative changes of the spi ne. No greater than 1 cm short axis lymph nodes are noted within the abdomen or pelvis. No pneumoperi toneum. IMPRESSION: 1. Soft tissue fullness at the left lateral tongue base is similar to the prior 2010 suggestive of po sttreatment change. 2. Left basilar atelectasis and mediastinal adenopathy. Mediastinal adenopathy may be reactive/infect ious/inflammatory or neoplastic. Short-term follow-up could be performed for reevaluation or PET/CT. 3. No findings to suggest visceral or osseous metastasis within the abdomen or pelvis given the lack limitation of lack of intravenous contrast. Splenomegaly is present. 4. Solitary right middle lobe 5 mm pulmonary nodule. Given the nodules size follow-up CT is recommend ed in 12 months.
[2018-08-30] MEDS: IBUPROFEN 600 MG TAB PO PRN (17:35)
--- NOTE | 2018-08-30 17:55 | PN ---
PROGRESS NOTE DATE OF SERVICE: 08/30/2018 This 53-year-old gentleman admitted with acute rhabdomyolysis has persistent elevated creatine kinase at this time. Patient also complains of weakness. The patient is also complaining of some night sweats for the past several weeks. The CK levels are actually slightly high compared to yesterday; 5078. The LFTs are also elevated. Aldolase is also high. Endocrine is also following the patient closely. Past medical history reviewed. REVIEW OF SYSTEMS: CARDIOVASCULAR SYSTEM: No angina, palpitations. RESPIRATORY SYSTEM: Occasional cough. GI: As mentioned earlier. : No dysuria or retention. NERVOUS SYSTEM: As mentioned earlier. MUSCULOSKELETAL: As mentioned earlier. CURRENT MEDICATIONS: Reviewed. They include: 1. Fioricet q.6 p.r.n. 2. Tylenol #3. 3. Tums. 4. Dextrose. 5. Lovenox 40 subcutaneously daily. 6. Cephulac. 7. Milk of Magnesia. 8. Narcan p.r.n. 9. Restoril. 10.Ultram. PHYSICAL EXAMINATION: Patient is alert, oriented x3. Pulse 96, blood pressure 142/92, respiration 16, temperature 98.2, pulse ox 96% on room air. HEENT: Conjunctivae normal. Oral mucosa moist. NECK: No jugular venous distention. No carotid bruit. No lymph node enlargement. CARDIOVASCULAR SYSTEM: S1, S2 muffled. RESPIRATORY SYSTEM: Breath sounds diminished at the bases. No rhonchi. No crackles. ABDOMEN: Soft, obese, non-tender. No mass palpable. LEGS: No edema. No swelling. NERVOUS SYSTEM: Higher functions as mentioned earlier. Moves all 4 limbs. No focal motor or sensory deficit. LYMPHATICS: No lymph node palpable in neck, axillae or groin. SKIN: No ulcer, rash, bleeding. LABS: CBC within normal limits. Sodium 140, potassium 3.7, AST 256, ALT 255. Creatine kinase 5078. ASSESSMENT: 1. Acute rhabdomyolysis. Rule out acute myositis or polymyositis. 2. Hepatic steatosis. 3. Increased AST, ALT. 4. Nonobstructive right-sided nephrolithiasis. 5. Obstructive sleep apnea. 6. Hyponatremia, mild. 7. Obesity with body mass index of 34.5. RECOMMENDATIONS AND DISCUSSION: In this 53-year-old gentleman who presented with multiple complex medical issues, we will monitor the patient closely, continue the current medications, continue with symptomatic treatment. The patient's CK remains elevated. Aldolase is also high, indicating myositis. The exact etiology of the myositis is unknown at this time. Multiple endocrine parameters were done which were normal, including SS-A, MO-1 and p- ANCA, c-ANCA. The total complement was also normal. HLA-B27 is also negative. At this time I would recommend a muscle biopsy and further testing. Continue to monitor. The sed rate is only 2 and CRP is only 5.4. The overall prognosis is guarded, which I discussed at length with the patient. Further recommendations to follow. MMODL / IJN: [id number] /
--- NOTE | 2018-08-30 22:07 | CONS ---
CONSULTATION REASON FOR CONSULT: Rhabdomyolysis. HISTORY OF PRESENT ILLNESS: Patient is a 53-year-old male who was admitted to the hospital with complaints of weakness and muscle aches. The patient was found to have elevated CK levels as outpatient of about 7000. He was referred to the hospital for admission and IV hydration. His CPK was 9000 on initial admission, patient has been maintained on IV fluids. The CPK level did come down to about 5000 and has stayed there. The patient has not been on any statins prior to admission. He did have a history of use of NSAIDs. Serum aldolase was significantly elevated at 72.3. The C-reactive protein was 5.4, which is not too high. All other immunological workup is negative and drug screen was negative as well. UA did show trace blood. Serum creatinine has been at 0.8 mg/dL. The patient has been voiding well. His liver enzymes have also been elevated. PAST MEDICAL HISTORY: Significant for osteoarthritis, obstructive sleep apnea. PAST SURGICAL HISTORY: Bilateral knee arthroplasty, hernia repair, back surgery. SOCIAL HISTORY: Positive for patient being a smoker, however, he quit smoking 20 years ago. No history of drug abuse or alcohol abuse. MEDICATIONS: Medications at home prior to admission include Motrin, Naprosyn, hemp oil. ALLERGIES: PENICILLIN. EXAMINATION: Patient is comfortable, awake, not in any acute distress. Blood pressure was 142/92, heart rate 96 per minute. Patient is afebrile. Examination of the heart S1, S2. Examination lungs bilateral breath sounds are heard. Abdomen is soft, obese, nontender. Examination of lower extremities shows edema 1+ bilaterally. OBGYN SPECIALIST exam is grossly intact. LABS: Show sodium 140, potassium 3.7, chloride 101, BUN of 12, serum creatinine 0.84. CK was 5078 and hemoglobin of 14.9 g/dL. UA showed trace blood. The drug screen was negative. All immunological studies are negative. ASSESSMENT: 1. Rhabdomyolysis with persistent low-grade rhabdo with CK staying at about 5000. All immunological workup is negative thus far. Patient is being seen by Rheumatology. Aldolase level was elevated. I do not see a TSH which will be ordered. Liver enzymes are also elevated. The abdominal CT did show some degree of mediastinal adenopathy and there was a solitary right middle lobe 5 mm pulmonary nodule noted. 2. Osteoarthritis. PLAN: Continue with IV hydration. Check TSH levels. Repeat labs in a.m. if the patient will need to follow up as outpatient with Rheumatology. He is also advised to maintain adequate fluid intake post discharge. The serum CO2 is significantly elevated at 13. Therefore, I will change the IV fluids to Ringer lactate and discontinue the bicarb drip. Thank you for this consultation. We will continue to follow the patient with you during his hospitalization. KARELY / VONNIE: [id number] /
[2018-08-30] MEDS: LACTATED RINGERS 1,000 ML IV SCH (23:15)
[2018-08-31] MEDS: LACTATED RINGERS 1,000 ML IV SCH ×3 (01:52→11:40)
[2018-08-31] MEDS: IBUPROFEN 600 MG TAB PO PRN (05:41)
[2018-08-31 08:09] VITALS: BP 116/58; PULSE 80; RESP 16; TEMP 98
[2018-08-31] MEDS: ENOXAPARIN 40 MG/0.4 ML SYRINGE SQ SCH (09:40)
--- NOTE | 2018-08-31 11:24 | P.GSCN ---
History of Present Illness Consult date: 08/31/18 Reason for Consult: Muscle biopsy History of present illness: This a 53-year-old male who is being worked up for myopathy. I've asked to see him regarding possible muscle biopsy. The patient states he feels well wished to go home today. Past Medical History Past Medical History: Osteoarthritis (OA), Sleep Apnea/CPAP/BIPAP Additional Past Medical History / Comment(s): blood in stool, "staph in infection after knee surgery at age 20" does not know what organism History of Any Multi-Drug Resistant Organisms: None Reported Past Surgical History: Back Surgery, Hernia Repair, Orthopedic Surgery Additional Past Surgical History / Comment(s): shruthi knee "partial replacements", total 5 knee surgeries, growth from throat removed, cyst removed from back Past Anesthesia/Blood Transfusion Reactions: No Reported Reaction Past Psychological History: No Psychological Hx Reported Smoking Status: Former smoker Past Alcohol Use History: Occasional Additional Past Alcohol Use History / Comment(s): quit smoking 20 yrs ago, smoked for a couple yrs, < 1 PPD Past Drug Use History: None Reported - Past Family History Mother Family Medical History: Pulmonary Embolus, Vascular Disorder Additional Family Medical History / Comment(s): mother and father Medications and Allergies Home Medications Medication Instructions Recorded Confirmed Type Hemp Oil 2 dropper SL DAILY 08/23/18 08/23/18 History Ibuprofen [Motrin Ib] 800 mg PO Q6H PRN 08/23/18 08/23/18 History Naproxen Sodium [Aleve] 440 mg PO DAILY PRN 08/23/18 08/23/18 History Allergies Allergy/AdvReac Type Severity Reaction Status Date / Time Penicillins Allergy Rash/Hives Verified 08/23/18 14:20 Surgical - Exam Vital Signs Temp Pulse Resp BP Pulse Ox 98.2 F 77 16 148/82 96 08/23/18 12:43 08/23/18 12:43 08/23/18 12:43 08/23/18 12:43 08/23/18 12:43 - General well developed, no distress - Eyes PERRL - ENT normal pinna - Neck no masses - Respiratory normal expansion - Cardiovascular Rhythm: regular - Abdomen Abdomen: soft, non tender Results - Labs 08/30/18 07:57 08/30/18 07:57 Assessment and Plan Assessment: 53-year-old male undergoing workup for myopathy. She will be scheduled for muscle biopsy on Sunday. He may be discharged home with the weekend.
[2018-08-31 11:58] LABS: Basophils % (A) 1 %; Eosinophils # (A) 0.3 k/uL (0-0.7); Eosinophils % (A) 4 %; HCT 46.3 % (39.0-53.0); HGB 15.8 gm/dL (13.0-17.5); Lymphocytes # (A) 1.3 k/uL (1.0-4.8); Lymphocytes % (A) 19 %; MCV 88.2 fL (80.0-100.0); Mean Platelet Volume 5.9; Monocytes # (A) 0.5 k/uL (0-1.0); Monocytes % (A) 8 %; Neutrophils # (A) 4.5 k/uL (1.3-7.7); Neutrophils % (A) 67 %; Platelet Count 177 k/uL (150-450); RBC 5.25 m/uL (4.30-5.90); RDW 13.5 % (11.5-15.5); WBC 6.7 k/uL (3.8-10.6)
[2018-08-31 12:07] LABS: ALT 246 U/L (21-72); AST 279 U/L (17-59); Albumin 3.7 g/dL (3.5-5.0); Alkaline Phosphatase 42 U/L (38-126); Anion Gap 7 mmol/L; Blood Urea Nitrogen 15 mg/dL (9-20); Calcium 9.1 mg/dL (8.4-10.2); Carbon Dioxide 27 mmol/L (22-30); Chloride 106 mmol/L (98-107); Glucose 122 mg/dL (74-99); Sodium 140 mmol/L (137-145); Total Bilirubin 1.1 mg/dL (0.2-1.3); Total Protein 6.5 g/dL (6.3-8.2)
[2018-08-31 12:32] LABS: Creatine Kinase 5334 U/L (55-170)
--- NOTE | 2018-08-31 12:44 | DS ---
DISCHARGE SUMMARY DATE OF SERVICE: 08/31/2018 FINAL DIAGNOSES: 1. Acute rhabdomyolysis, rule out acute myositis or polymyositis. 2. Hepatic steatosis. 3. Increased AST, ALT. 4. Nonobstructive right-sided nephrolithiasis. 5. Obstructive sleep apnea. 6. Hyponatremia, mild. 7. Obesity with body mass index of 34.5. DISCHARGE DISPOSITION: The patient will be discharged in stable condition with guarded prognosis. HISTORY OF PRESENT ILLNESS: This 53-year-old gentleman who presented with past medical history of multiple medical problems admitted with features of rhabdomyolysis. The CK was elevated. The patient aldolase was elevated and possibility of myositis was also considered. CT scans were normal. Muscle biopsy was pending at this time. Otherwise, the creatine kinase was initially 9000s reduced to 5000s. The patient is rather asymptomatic and patient will be discharged in stable condition with further plans for outpatient followup and workup. On exam, vitals are stable. CARDIOVASCULAR: S1, S2. ABDOMEN: Soft. NERVOUS SYSTEM: No focal deficits. The AST was 256 and ALT was 255. DISCHARGE ADVICE AND MEDICATION: 1. Diet is cardiac diet. 2. Activities limited until followup. 3. Follow up with Dr. Pamela Aguilar in 1 to 2 days. 4. Follow up with Dr. Weinstein in one week. 5. Outpatient muscle biopsy to be sent to special testing by Dr. Weinstein. Continue the home medications which are: 1. Motrin and Naprosyn p.r.n. 2. Hemp oil. Once again, the patient will be discharged in stable condition with guarded prognosis. MMODL / IJN: [id number] /
== END 2018-08-31 13:31 | disposition home or self-care (01) | DRG 558 ==
LOC: EC 12:07 → 4MS4W 15:04
PROVIDERS: ADMIT Hospitalist; ATTEND Hospitalist
DX: M62.82 Rhabdomyolysis (principal); E87.1 Hypo-osmolality and hyponatremia; K76.0 Fatty (change of) liver, not elsewhere classified; K75.9 Inflammatory liver disease, unspecified; M65.9 Synovitis and tenosynovitis, unspecified; M19.90 Unspecified osteoarthritis, unspecified site; G47.33 Obstructive sleep apnea (adult) (pediatric); N20.0 Calculus of kidney; R91.1 Solitary pulmonary nodule; R59.0 Localized enlarged lymph nodes; R51 Headache; M54.2 Cervicalgia; E66.9 Obesity, unspecified; Z68.34 Body mass index [BMI] 34.0-34.9, adult; Z72.820 Sleep deprivation; Z71.3 Dietary counseling and surveillance; Z79.899 Other long term (current) drug therapy; Z96.653 Presence of artificial knee joint, bilateral; Z87.891 Personal history of nicotine dependence; Z88.0 Allergy status to penicillin; Z82.49 Family history of ischemic heart disease and other diseases of the circulatory system
CPT/HCPCS: 36415; 70450; 70490; 71250; 74176; 76705; 80048; 80053; 80074; 80306; 81001; 82085; 82164; 82550; 83516; 83615; 84443; 84450; 84460; 84550; 85025; 85610; 85613; 85652; 85730; 86038; 86140; 86160; 86162; 86200; 86225; 86235; 86255; 86431; 86706; 86803; 86812; 96360; 96361; 99284

== ENCOUNTER 2018-09-02 10:23 | Day surgery (SDC) | payer BC ==
[2018-09-02] MEDS ORDERED: LACTATED RINGERS 1,000 ML IV ONE (11:01)
[2018-09-02] MEDS ORDERED: ONDANSETRON 4 MG/2 ML VIAL IVP ONE (11:36)
[2018-09-02] MEDS ORDERED: HEPARIN SODIUM,PORCINE 5,000 UNIT/ML 1 ML VIAL SQ ONE (11:36)
[2018-09-02] MEDS ORDERED: DEXAMETHASONE SOD PHOSPHATE 10 MG/ML 1 ML VIAL IV ONE (11:36)
--- NOTE | 2018-09-02 11:40 | P.GSHP ---
History of Present Illness H&P Date: 09/02/18 Chief Complaint: Myopathy This a 53-year-old male who presents today for left thigh muscle biopsy. Patient is undergoing workup for myopathy and weakness. Past Medical History Past Medical History: Osteoarthritis (OA), Sleep Apnea/CPAP/BIPAP Additional Past Medical History / Comment(s): blood in stool, "staph in infection after knee surgery at age 20" does not know what organism History of Any Multi-Drug Resistant Organisms: None Reported Past Surgical History: Back Surgery, Hernia Repair, Orthopedic Surgery Additional Past Surgical History / Comment(s): shruthi knee "partial replacements", total 5 knee surgeries, growth from throat removed, cyst removed from back Past Anesthesia/Blood Transfusion Reactions: No Reported Reaction Past Psychological History: No Psychological Hx Reported Smoking Status: Former smoker Past Alcohol Use History: Occasional Additional Past Alcohol Use History / Comment(s): quit smoking 20 yrs ago, smoked for a couple yrs, < 1 PPD Past Drug Use History: None Reported - Past Family History Mother Family Medical History: Pulmonary Embolus, Vascular Disorder Additional Family Medical History / Comment(s): mother and father Medications and Allergies Home Medications Medication Instructions Recorded Confirmed Type Hemp Oil 2 dropper SL DAILY 08/23/18 09/02/18 History Ibuprofen [Motrin Ib] 800 mg PO Q6H PRN 08/23/18 09/02/18 History Naproxen Sodium [Aleve] 440 mg PO DAILY PRN 08/23/18 09/02/18 History Allergies Allergy/AdvReac Type Severity Reaction Status Date / Time Penicillins Allergy Rash/Hives Verified 09/02/18 11:05 Surgical - Exam Vital Signs Temp Pulse Resp BP Pulse Ox 98.1 F 82 16 147/82 98 09/02/18 10:49 09/02/18 10:49 09/02/18 10:49 09/02/18 10:49 09/02/18 10:49 - General well developed, well nourished, no distress - Eyes PERRL - ENT normal pinna - Neck no masses - Respiratory normal expansion - Cardiovascular Rhythm: regular - Abdomen Abdomen: soft, non tender Assessment and Plan Assessment: Myopathy. We'll perform left thigh muscle biopsy.
[2018-09-02] MEDS ORDERED: ceFAZolin IN SWFI 2 GM/20 ML SYRINGE IVP ONE (11:45)
[2018-09-02] MEDS ORDERED: fentaNYL (PF) 50 MCG/ML 2 ML AMP ONE (12:07)
[2018-09-02] MEDS ORDERED: KETOROLAC 30 MG/ML 1 ML VIAL ONE (12:07)
[2018-09-02] MEDS ORDERED: MIDAZOLAM 2 MG/2 ML VIAL ONE (12:07)
[2018-09-02] MEDS ORDERED: PROPOFOL 10 MG/ML 20 ML VIAL IV ONE (12:07)
[2018-09-02] MEDS ORDERED: LIDOCAINE 1% INJ 10MG/ML (20 ML MDV) ONE (12:07)
[2018-09-02] MEDS ORDERED: BUPIVACAIN-EPI 0.25%-1:200,000 30 ML VIAL SQ ONE (12:26)
[2018-09-02 13:28] VITALS: TEMP 97.4
[2018-09-02 13:30] VITALS: RESP 18
[2018-09-02] MEDS ORDERED: HYDROcodone/APAP 7.5-325MG 1 EACH TAB PO ONE (14:44)
[2018-09-02 15:05] VITALS: BP 135/69; PULSE 73
--- NOTE | 2018-09-21 09:08 | P.OP ---
Date of Procedure: 09/02/18 Preoperative Diagnosis: myopathy Postoperative Diagnosis: myopathy Procedure(s) Performed: muscle biopsy left thigh Anesthesia: STACI Surgeon: Matteo Rachel Estimated Blood Loss (ml): 5 Pathology: other (left thigh muscle biopsy) Condition: stable Disposition: PACU Description of Procedure: the patient was placed on the operating table in the supine position. He received general anesthesia. His left thigh was prepped and draped usua On the anterior surface. A 10 mm skin incision was made. Using electrocautery the subcutaneous tissues were divided. The fascia was exposed and divided. A portion of muscle was biopsied measuring 1.5 x 3 cm in length. The cut ends of the muscle was suture ligated with 0 Vicryl suture. The specimen was sent to pathology. The fascia was closed with 0 Vicryl suture. Skin was closed with erasmo. Sterile dressing was applied.
== END 2018-09-02 15:21 | disposition home or self-care (01) ==
LOC: OR 10:23
PROVIDERS: ATTEND Surgery
DX: G72.81 Critical illness myopathy (principal); M19.90 Unspecified osteoarthritis, unspecified site; G47.30 Sleep apnea, unspecified; Z99.89 Dependence on other enabling machines and devices; Z96.653 Presence of artificial knee joint, bilateral; Z79.899 Other long term (current) drug therapy; Z88.0 Allergy status to penicillin; Z87.891 Personal history of nicotine dependence
CPT/HCPCS: 20205; J2250; J1644; J1100; J0690; J2405; J2001; J3010; J1885; J2704

== ENCOUNTER → 2018-09-06 | Outpatient (CLI) | payer BC ==
[2018-09-06 11:30] LABS: Basophils # (A) 0.1 k/uL (0-0.2); Basophils % (A) 1 %; Eosinophils # (A) 0.2 k/uL (0-0.7); Eosinophils % (A) 2 %; HGB 16.5 gm/dL (13.0-17.5); Lymphocytes # (A) 1.2 k/uL (1.0-4.8); Lymphocytes % (A) 15 %; MCH 28.4 pg (25.0-35.0); MCHC 32.3 g/dL (31.0-37.0); MCV 87.8 fL (80.0-100.0); Monocytes # (A) 0.5 k/uL (0-1.0); Monocytes % (A) 6 %; Neutrophils # (A) 5.6 k/uL (1.3-7.7); Neutrophils % (A) 74 %; Platelet Count 260 k/uL (150-450); RBC 5.81 m/uL (4.30-5.90); RDW 13.3 % (11.5-15.5); WBC 7.7 k/uL (3.8-10.6)
[2018-09-06 17:18] LABS: Albumin 4.5 g/dL (3.80-4.90); Albumin/Globulin Ratio 2.37 (1.20-2.10); Anion Gap 8.8 mmol/L (4.00-12.00); Calcium 9.1 mg/dL (8.7-10.3); Carbon Dioxide 26.2 mmol/L (21.6-31.8); Globulin 1.9 g/dL (2.1-3.7); Potassium 4.7 mmol/L (3.5-5.5); Total Bilirubin 0.7 mg/dL (0.2-1.2); Total Protein 6.4 g/dL (6.2-8.2)
== END | disposition home or self-care (01) ==
LOC: LABWHC1 10:00
PROVIDERS: ATTEND Hospitalist
DX: M62.82 Rhabdomyolysis (principal)
CPT/HCPCS: 36415; 80053; 82550; 85025

== ENCOUNTER → 2018-10-05 | Outpatient (CLI) | payer BC ==
--- NOTE | 2018-10-06 10:10 | PE ---
EXAMINATION TYPE: PET CT fusion skull to thigh DATE OF EXAM: 10/05/2018 COMPARISON: CT performed 08/30/2018 Prior PET/CT: None HISTORY: Solitary pulmonary nodule. History of prior tongue base cancer. TECHNIQUE: Following the intravenous administration of 12.8 mCi of F-18 FDG, whole body images are p erformed from the skull base to the midthigh. Images are reviewed on the computer in the coronal, ax ial, and sagittal planes. Reconstructed rotating images are created on independent workstation and r eviewed on the computer. A localization and attenuation correction CT is performed in conjunction w ith the PET scan. DLP: 665.81 mGycm SCAN: Initial Blood glucose: 97 mg/dL Average Mediastinum SUV: 1.33 Average Liver SUV: 2.22 FINDINGS: NECK: No abnormal uptake THORAX: Suspicious uptake within lung aguirre is not identified. Areas within the lingula and at the l eft base more likely reflect atelectasis. The previously identified nodular density in the right midd le lobe near the base on 08/30/2018 is not evident on the current exam. No suspicious uptake in this region. There is some mild uptake within lymph nodes within the mediastinum. This would include a pretracheal lymph node with an SUV value of 2.1. PET image 95. A medial aortopulmonic window lymph node or left peribronchial lymph node. PET image 97, SUV value 1.99. ABDOMEN: No abnormal uptake PELVIS: No abnormal uptake OSSEOUS STRUCTURES: No abnormal uptake LOCALIZATION CT: Tongue base appears stable from comparison. No abnormal uptake on the PET/CT in this region is evident. No suspicious adenopathy within the neck is evident. Enlarged pretracheal lymphad enopathy is present. This is creating mild uptake identified on the PET/CT. The ascending thoracic ao rta at the level the main pulmonary artery is 4.2 cm. The main pulmonary artery the bifurcation is 3. 0 cm. COMPARISON: Previous right middle lobe nodules not identified. Some atelectatic type changes appear t o be at the lingula and left diaphragm base. IMPRESSION: 1. No suspicious uptake suggestive for metastatic disease or new primary lung neoplasm. 2. No abnormal uptake within the area of suspected small nodule right middle lobe. 3. There is some intermediate signal within the enlarged lymph nodes within the mediastinum discussed above. This could be inflammatory in nature. Metastatic disease is not entirely excluded. 4. Note is made of ascending thoracic aortic aneurysm measuring 4.2 cm.
== END | disposition home or self-care (01) ==
LOC: RADPETMAIN 11:43
PROVIDERS: ATTEND Internal Medicine Pulmonary Disease
DX: I71.2 Thoracic aortic aneurysm, without rupture (principal); R59.9 Enlarged lymph nodes, unspecified
CPT/HCPCS: 78815; A9552

== ENCOUNTER 2021-06-02 18:42 | Observation (INO) | payer BC ==
--- NOTE | 2021-06-02 19:13 | ED ---
General Adult HPI - General Chief complaint: Neuro Symptoms/Deficit Stated complaint: autoimmune disease; facial drooping Time Seen by Provider: 06/02/21 19:00 Source: patient Mode of arrival: ambulatory Limitations: no limitations - History of Present Illness Initial comments: Dictation was produced using [employer] dictation software. please excuse any grammatical, word or spelling errors. Chief Complaint: 55-year-old male presents with approximately 18 hours of left facial weakness History of Present Illness: Is 55-year-old male who states he has past medical history of autoimmune disease. Last night patient felt some mild left ear pain. He woke this morning. He went to go look is his granddaughter comply at around 8 AM when he noticed that his lips felt weird. He looked in the mirror and noticed that he had left lower facial weakness. Patient denies any history of stroke. Has no other neurologic complaints. Denies any numbness and weakness of the extremities. Is not having any issues ambulating. The ROS documented in this emergency department record has been reviewed and confirmed by me. Those systems with pertinent positive or negative responses have been documented in the HPI. All other systems are other negative and/or noncontributory. PHYSICAL EXAM: General Impression: Alert and oriented x3, not in acute distress HEENT: Normocephalic atraumatic, extra-ocular movements intact, pupils equal and reactive to light bilaterally, mucous membranes moist. Cardiovascular: Heart regular rate and rhythm Chest: Able to complete full sentences, no retractions, no tachypnea Abdomen: abdomen soft, non-tender, non-distended, no organomegaly Musculoskeletal: Pulses present and equal in all extremities, no peripheral edema Motor: no focal deficits noted Neurological: Left lower facial weakness with smiling. Not entirely obvious if patient has left upper facial weakness. There does appear to be some noticeable leg with blinking of the eyelids Skin: Intact with no visualized rashes Psych: Normal affect and mood ED course: 55-year-old male presents with left facial weakness. Clinical concern for stroke versus Rice palsy. Vital signs upon arrival are within acceptable limits. There doesn't appear to be obvious left upper facial signs or symptoms. Symptoms began 18 hours ago. Patient a TPA candidate. No indication for code stroke activation. EKG interpretation: Ventricular rate 70, normal sinus rhythm, TN interval 92, QRS 90, QTC 428. No TN prolongation, no QTC prolongation, no ST or T-wave changes noted. No old EKG for comparison. Overall, this EKG is unremarkable Laboratory evaluation obtained. CBC unremarkable. Coag panel is negative. Mild acidosis of unclear significance. Rest metabolic panel is unremarkable. Computed tomography scan the brain shows no acute processes. CT angios the head and neck shows no significant stenosis, occlusion, dissection or aneurysm. Patient reevaluated at bedside at 8:40 PM he is to have left lower facial weakness without any significant weight obvious left upper facial weakness. There does appear to be maybe some mild observable left upper facial weakness however not enough weakness to strongly consider Rice palsy. Patient has extensive history of autoimmune disease and currently being treated with immunosuppressants. This point given patient's clinical presentation is a questionable have patient admitted with neurology on consultation. Patient treated with prednisone, antivirals. Patient also given aspirin for concerns of acute CVA. - Related Data Home Medications Medication Instructions Recorded Confirmed Ibuprofen [Motrin Ib] 800 mg PO Q6H PRN 08/23/18 06/02/21 Acetaminophen Tab [Tylenol Tab] 1,000 mg PO Q6HR PRN 06/02/21 06/02/21 Cyclobenzaprine [Flexeril] 10 mg PO TID PRN 06/02/21 06/02/21 DULoxetine HCL [Cymbalta] 60 mg PO DAILY 06/02/21 06/02/21 Loratadine [Claritin] 10 mg PO DAILY 06/02/21 06/02/21 Mycophenolate Mofetil [Cellcept] 1,000 mg PO BID 06/02/21 06/02/21 tadalafiL [Tadalafil] 5 mg PO DAILY 06/02/21 06/02/21 Allergies Allergy/AdvReac Type Severity Reaction Status Date / Time Penicillins Allergy Rash/Hives Verified 06/02/21 20:18 Review of Systems ROS Statement: Those systems with pertinent positive or pertinent negative responses have been documented in the HPI. ROS Other: All systems not noted in ROS Statement are negative. Past Medical History Past Medical History: Osteoarthritis (OA), Sleep Apnea/CPAP/BIPAP Additional Past Medical History / Comment(s): blood in stool, auto immune disease, "staph in infection after knee surgery at age 20" does not know what organism History of Any Multi-Drug Resistant Organisms: None Reported Past Surgical History: Back Surgery, Hernia Repair, Orthopedic Surgery Additional Past Surgical History / Comment(s): shruthi knee "partial replacements", total 5 knee surgeries, growth from throat removed, cyst removed from back Past Anesthesia/Blood Transfusion Reactions: No Reported Reaction Past Psychological History: No Psychological Hx Reported Smoking Status: Never smoker Past Alcohol Use History: Occasional Past Drug Use History: None Reported - Past Family History Mother Family Medical History: Pulmonary Embolus, Vascular Disorder Additional Family Medical History / Comment(s): mother and father General Exam Limitations: no limitations Course Vital Signs 06/02/21 06/02/21 18:51 19:15 Temperature 98.8 F 98.7 F Pulse Rate 79 79 Respiratory 18 18 Rate Blood Pressure 164/83 127/81 O2 Sat by Pulse 97 96 Oximetry Medical Decision Making - Lab Data Result diagrams: 06/02/21 19:24 06/02/21 19:24 Lab Results 06/02/21 06/02/21 06/02/21 Range/Units 19:24 19:24 19:24 WBC 6.3 (3.8-10.6) k/uL RBC 4.19 L (4.30-5.90) m/uL Hgb 13.2 (13.0-17.5) gm/dL Hct 38.3 L (39.0-53.0) % MCV 91.3 (80.0-100.0) fL MCH 31.5 (25.0-35.0) pg MCHC 34.5 (31.0-37.0) g/dL RDW 15.0 (11.5-15.5) % Plt Count 252 (150-450) k/uL MPV 6.9 Neutrophils % 65 % Lymphocytes % 19 % Monocytes % 7 % Eosinophils % 5 % Basophils % 2 % Neutrophils # 4.1 (1.3-7.7) k/uL Lymphocytes # 1.2 (1.0-4.8) k/uL Monocytes # 0.5 (0-1.0) k/uL Eosinophils # 0.3 (0-0.7) k/uL Basophils # 0.1 (0-0.2) k/uL Poikilocytosis Slight PT 10.5 (9.0-12.0) sec INR 1.0 (<1.2) APTT 23.4 (22.0-30.0) sec Sodium 136 L (137-145) mmol/L Potassium 3.8 (3.5-5.1) mmol/L Chloride 106 (98-107) mmol/L Carbon Dioxide 17 L (22-30) mmol/L Anion Gap 13 mmol/L BUN 19 (9-20) mg/dL Creatinine 0.78 (0.66-1.25) mg/dL Est GFR (CKD-EPI)AfAm >90 (>60 ml/min/1.73 sqM) Est GFR (CKD-EPI)NonAf >90 (>60 ml/min/1.73 sqM) Glucose 110 H (74-99) mg/dL Calcium 9.0 (8.4-10.2) mg/dL Disposition Clinical Impression: Facial weakness Disposition: ADMITTED IP TO THIS HOSP Condition: Fair Referrals: Pamela Aguilar DO [Primary Care Provider] - 1-2 days
[2021-06-02 19:32] LABS: Basophils # (A) 0.1 k/uL (0-0.2); Basophils % (A) 2 %; Eosinophils # (A) 0.3 k/uL (0-0.7); Eosinophils % (A) 5 %; HCT 38.3 % (39.0-53.0); HGB 13.2 gm/dL (13.0-17.5); Lymphocytes # (A) 1.2 k/uL (1.0-4.8); Lymphocytes % (A) 19 %; MCH 31.5 pg (25.0-35.0); MCHC 34.5 g/dL (31.0-37.0); MCV 91.3 fL (80.0-100.0); Mean Platelet Volume 6.9; Monocytes # (A) 0.5 k/uL (0-1.0); Monocytes % (A) 7 %; Neutrophils # (A) 4.1 k/uL (1.3-7.7); Neutrophils % (A) 65 %; Platelet Count 252 k/uL (150-450); Poikilocytosis Slight; RBC 4.19 m/uL (4.30-5.90); WBC 6.3 k/uL (3.8-10.6)
[2021-06-02 19:45] LABS: African American GFR (CKD) >90 (>60 ml/min/1.73 sqM); Anion Gap 13 mmol/L; Blood Urea Nitrogen 19 mg/dL (9-20); Carbon Dioxide 17 mmol/L (22-30); Chloride 106 mmol/L (98-107); Glucose 110 mg/dL (74-99); Non-African American GFR(CKD) >90 (>60 ml/min/1.73 sqM); Potassium 3.8 mmol/L (3.5-5.1); Sodium 136 mmol/L (137-145)
[2021-06-02 19:46] LABS: Partial Thromboplastin Time 23.4 sec (22.0-30.0); Prothrombin Time 10.5 sec (9.0-12.0)
[2021-06-02] MEDS ORDERED: predniSONE 20 MG TAB PO STA (20:28)
--- NOTE | 2021-06-02 20:28 | CT ---
EXAMINATION TYPE: CT brain wo con DATE OF EXAM: 06/02/2021 COMPARISON: 08/30/2018 HISTORY: Facial droop. History of prior tongue base cancer. History of Solitary pulmonary nodule. TECHNIQUE: CT scan of the head performed without contrast CT DLP: 1169.8 mGycm Automated exposure control for dose reduction was used. FINDINGS: No evidence for acute intracranial hemorrhage, midline shift or mass effect. The sherwood-white matter di fferentiation is preserved. Posterior fossa contents are within normal limit. CSF spaces and ventricu lar system are normal in configuration. No acute orbital, osseous or soft tissue abnormality. Paranasal sinuses and mastoid air cells are well aerated. IMPRESSION: NO EVIDENCE FOR ACUTE INTRACRANIAL HEMORRHAGE, MIDLINE SHIFT OR MASS EFFECT.
[2021-06-02] MEDS ORDERED: valACYclovir HCL 1,000 MG TABLET PO STA (20:29)
--- NOTE | 2021-06-02 20:36 | CT ---
EXAMINATION TYPE: CT angio head neck DATE OF EXAM: 06/02/2021 HISTORY: facial droop COMPARISON: None CT DLP: 900.8 mGycm. Automated Exposure Control for Dose Reduction was Utilized. TECHNIQUE: CTA scan of the neck and head is performed with IV Contrast, patient injected with 65 mL of Isovue 370, axial images are obtained, coronal and sagittal reformatted images are reviewed. Three -D reconstructed images are created on an independent workstation and reviewed. FINDINGS: Carotid/Vascular Structures: The common carotid arteries are patent. Vertebral arteries are patent. I nternal carotid arteries in the neck and head are patent. The basilar artery is patent. The anterior cerebral arteries, middle cerebral arteries and posterior cerebral arteries are patent. No evidence o f aneurysm or dissection. Other: Asymmetric increased fat behind the left thyroid lobe could represent a lipoma. No cervical ly mphadenopathy. The lung apices are unremarkable. The arch of the aorta is unremarkable. Prominent and enlarged lymph nodes are partially seen in the mediastinum. IMPRESSION: 1. No significant stenosis. No occlusion. No dissection or aneurysm seen. 2. Increased fat behind the left thyroid lobe could represent a lipoma. 3. Prominent and mildly enlarged lymph nodes partially seen in the mediastinum, correlation with nonu rgent enhanced CT chest recommended.
[2021-06-02] MEDS ORDERED: ASPIRIN 81 MG PO STA (20:45)
[2021-06-02] MEDS ORDERED: ARTIFICIAL TEARS-HYPROMELLOSE DROPS 15 ML BTL LEFT EYE PRN (20:45)
[2021-06-02] MEDS ORDERED: SODIUM CHLORIDE 0.9% 1,000 ML IV SCH (20:45)
[2021-06-02] MEDS ORDERED: NALOXONE 0.4 MG/ML 1 ML VIAL IV PRN (20:45)
[2021-06-02] MEDS ORDERED: IBUPROFEN 800 MG TAB PO PRN (21:04)
[2021-06-02] MEDS ORDERED: ACETAMINOPHEN TAB 500 MG TAB PO PRN (21:04)
[2021-06-02] MEDS ORDERED: CYCLOBENZAPRINE 10 MG TAB PO PRN (21:04)
[2021-06-02] MEDS ORDERED: DULoxetine HCL 60 MG CAPSULE.DR PO SCH (21:15)
[2021-06-02] MEDS: NON FORMULARY DRUG (Tadalafil [Tadalafil] 5 MG Tablet) PO SCH (21:23)
[2021-06-03] MEDS: NON FORMULARY DRUG (Tadalafil [Tadalafil] 5 MG Tablet) PO SCH (08:20)
[2021-06-03] MEDS ORDERED: LORATADINE 10 MG TAB PO SCH (09:00)
[2021-06-03 10:10] VITALS: RESP 18; TEMP 98.3
[2021-06-03 12:01] VITALS: BP 136/83; PULSE 65
--- NOTE | 2021-06-03 13:37 | P.CNNES ---
History of Present Illness Consult date: 06/03/21 Requesting physician: Bryce Gregory Reason for Consult: Facial weakness, CVA versus Rice's palsy. History of Present Illness: Patient is a 55-year-old male came to the hospital yesterday at 6:42 PM for left facial weakness. Patient states that yesterday morning he was putting Chapstick, when he felt funny feeling in his lips, when he was rubbing his upper and lower lips. He said that when he tried to kiss his granddaughter, he said his lips were feeling pulling to one side. His son also noticed a difference in his face, with left-sided droopiness. Patient states that for about 5 days prior to arrival, he was having pain below and behind the left ear. He has been noticing some drooling out of left corner of the mouth while sleeping for the last 2 days. He denies any other neurological symptoms whatsoever. Denies any focal numbness tingling, any new weakness, problem with the vision, hoarseness, sore throat dysphagia. No fever or chills. Denies any balance problems. Denies any changes in hearing, loss of taste sensation or any hyperacusis. Patient's vitals on arrival blood pressure 164/83, pulse is [address] head showed no acute process. CTA of head and neck showed no significant stenosis or occlusion or dissection or aneurysm. Increase fat behind the left thyroid lobe could represent a lipoma. Prominent and mildly enlarged lymph nodes partially seen in the mediastinum, correlation for non urgent enhanced CT chest recommended. I would defer this enlarged lymph nodes to IM. EKG shows normal sinus rhythm, rightward axis deviation. CBC is normal, PT/PTT normal, Chem-7 normal. Patient's home medications include Flexeril, Cymbalta 60 mg, CellCept 1000 mg twice a day. Patient denies hypertension or diabetes. 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 He was found to have highly elevated CPK. Patient was placed on IVIG 80 g per day for 2 consecutive days, once a month, and also on CellCept 1000 mg twice a day. His symptoms consisted of generalized weakness of the left side was more weaker than the right. He follows up with machine turner Dr Chavarria at [facility]. Patient also has received Rituxan twice a year. Review of Systems As above in detail. All other review of systems unremarkable. He has history of bilateral knee replacement and surgeries. Past Medical History Past Medical History: Osteoarthritis (OA), Sleep Apnea/CPAP/BIPAP Additional Past Medical History / Comment(s): blood in stool, auto immune disease, "staph in infection after knee surgery at age 20" does not know what organism History of Any Multi-Drug Resistant Organisms: None Reported Past Surgical History: Back Surgery, Hernia Repair, Orthopedic Surgery Additional Past Surgical History / Comment(s): shruthi knee "partial replacements", total 5 knee surgeries, growth from throat removed, cyst removed from back Past Anesthesia/Blood Transfusion Reactions: No Reported Reaction Past Psychological History: No Psychological Hx Reported Smoking Status: Former smoker Past Alcohol Use History: Occasional Additional Past Alcohol Use History / Comment(s): quit smoking 20 yrs ago, smoked for a couple yrs, < 1 PPD Past Drug Use History: None Reported - Past Family History Mother Family Medical History: Pulmonary Embolus, Vascular Disorder Additional Family Medical History / Comment(s): mother and father Medications and Allergies Home Medications Medication Instructions Recorded Confirmed Type Ibuprofen [Motrin Ib] 800 mg PO Q6H PRN 08/23/18 06/02/21 History Acetaminophen Tab [Tylenol] 1,000 mg PO Q6HR PRN 06/02/21 06/02/21 History Cyclobenzaprine [Flexeril] 10 mg PO TID PRN 06/02/21 06/02/21 History DULoxetine HCL [Cymbalta] 60 mg PO DAILY 06/02/21 06/02/21 History Loratadine [Claritin] 10 mg PO DAILY 06/02/21 06/02/21 History Mycophenolate Mofetil [Cellcept] 1,000 mg PO BID 06/02/21 06/02/21 History tadalafiL [Tadalafil] 5 mg PO DAILY 06/02/21 06/02/21 History predniSONE 60 mg PO DIRECTED #45 tab 06/03/21 Rx valACYclovir HCL [Valtrex] 1,000 mg PO TID 7 Days #21 tablet 06/03/21 Rx Allergies Allergy/AdvReac Type Severity Reaction Status Date / Time Penicillins Allergy Rash/Hives Verified 06/02/21 20:18 Physical Examination - Vital Signs Vital Signs: Vital Signs Temp Pulse Pulse Resp BP BP Pulse Ox 06/03/21 08:00 98.3 F 80 18 146/79 96 06/03/21 03:50 97.7 F 65 14 131/79 99 06/02/21 23:21 98.2 F 77 16 128/65 97 06/02/21 21:30 79 16 128/78 97 06/02/21 21:00 83 16 136/67 98 06/02/21 20:30 80 16 118/71 97 06/02/21 20:00 82 16 117/80 97 06/02/21 19:15 98.7 F 79 18 127/81 96 06/02/21 18:51 98.8 F 79 18 164/83 97 Intake and Output 06/02/21 06/03/21 06/03/21 22:59 06:59 14:59 Intake Total 240 Output Total 2700 Balance -2700 240 Intake: Oral 240 Output: Urine 2700 Other: Voiding Method Toilet # Voids 0 Weight 111.13 kg 110.9 kg Patient is a middle aged male, very pleasant, in no acute distress. Patient is alert awake oriented to time place and person. Speech and language functions are normal. Attention, concentration and fund of knowledge is adequate. No aphasia or dysarthria. On cranial examination, pupils are equal, round and reacting to light, visual aguirre are full on confrontation, with no neglect on double simultaneous stimulation. His extraocular muscles are intact with no nystagmus. Patient has left facial weakness, peripheral type, mild in degree. His tongue protrudes to the midline. Palatal elevation and sensation normal, hearing and shoulder shrug normal, facial sensation normal. On muscle strength testing, there is no pronator drift and the strength is normal in arms and legs distally and proximally, except hip flexion, which is 5- on the right, 4+ left. Deep tendon reflexes are symmetric, 1+ at the biceps and brachioradialis, 1+ at the knees and ankles and plantars downgoing. Sensory to touch is equal with no neglect on double simultaneous stimulation. Cerebellar function showed no ataxia for [id number] testing. No dysdiadochokinesia. Tone and bulk of muscles normal. Gait normal. On general examination, there is no carotid bruit or murmur, S1-S2 audible. Abdomen is soft nontender. Chest is clear. Peripheral pulses are present. No edema. 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 * History of necrotizing myopathy Plan: * Prednisone 60 mg daily for 5 days, then decrease by 10 mg daily until off. * Valtrex 1 g 3 times a day for 7 days. * Pepcid 20 mg once or twice a day while patient takes prednisone for gastric ulcer prophylaxis. * Computed tomography scan of head, and CTA of head and neck are normal. * CTA of head and neck report mentioned about enlarged mediastinal lymph nodes. Will defer IM to address this issue. * Neurologically clear for discharge. * May follow up with neurologist locally, if has any persistent concerns.
[2021-06-03] MEDS ORDERED: FAMOTIDINE 20 MG TAB PO SCH (13:45)
[2021-06-03] MEDS ORDERED: valACYclovir HCL 1,000 MG TABLET PO SCH (16:00)
== END 2021-06-03 14:46 | disposition home or self-care (01) ==
LOC: EC 18:42 → 3SCARD 20:46
PROVIDERS: ADMIT Internal Medicine; ATTEND Internal Medicine
DX: R29.810 Facial weakness (principal); R74.8 Abnormal levels of other serum enzymes; E87.2 Acidosis; Z79.899 Other long term (current) drug therapy; Z87.891 Personal history of nicotine dependence
CPT/HCPCS: 99285; 36415; 93005; 80048; 85025; 85610; 85730; 70496; 70450; 70498; G0378 ×2; J7517 ×2; J7512; Q9967

== ENCOUNTER → 2021-07-22 | Outpatient (CLI) | payer BC ==
[2021-07-25 10:32] LABS: Angiotensin-1 Converting Enz. 17 U/L (8-52)
== END | disposition home or self-care (01) ==
LOC: LABWHC1 15:50
PROVIDERS: ATTEND Nurse Practitioner Adult Health
DX: D86.9 Sarcoidosis, unspecified (principal)
CPT/HCPCS: 36415; 82164; 85652; 86698

== ENCOUNTER 2022-04-29 08:56 | Emergency (ER) | payer BC ==
[2022-04-29 09:01] VITALS: TEMP 98.3
--- NOTE | 2022-04-29 09:09 | ED ---
General Adult HPI - General Chief complaint: Upper Respiratory Infection Stated complaint: Covid + Time Seen by Provider: 04/29/22 08:58 Source: patient, RN notes reviewed Mode of arrival: ambulatory Limitations: no limitations - History of Present Illness Initial comments: This a 56-year-old male presents emergency Department with chief complaint of COVID-19. Patient states he started symptoms 2 days ago tested positive today. Patient states that he takes CellCept for Arm eating disorder. Patient was advised by his automatic shirring machine operator to have monoclon al antibodies. Patient states that he has had fever cough, nasal congestion no chest pain or shortness breath no GI symptoms. - Related Data Home Medications Medication Instructions Recorded Confirmed Ibuprofen [Motrin Ib] 800 mg PO Q6H PRN 08/23/18 06/02/21 Acetaminophen Tab [Tylenol] 1,000 mg PO Q6HR PRN 06/02/21 06/02/21 Cyclobenzaprine [Flexeril] 10 mg PO TID PRN 06/02/21 06/02/21 DULoxetine HCL [Cymbalta] 60 mg PO DAILY 06/02/21 06/02/21 Loratadine [Claritin] 10 mg PO DAILY 06/02/21 06/02/21 mycophenolate mofetiL [Cellcept] 1,000 mg PO BID 06/02/21 06/02/21 tadalafiL 5 mg PO DAILY 06/02/21 06/02/21 Previous Rx's Medication Instructions Recorded predniSONE 60 mg PO DIRECTED #45 tab 06/03/21 valACYclovir HCL [Valtrex] 1,000 mg PO TID 7 Days #21 tablet 06/03/21 Allergies Allergy/AdvReac Type Severity Reaction Status Date / Time Penicillins Allergy Rash/Hives Verified 04/29/22 09:00 Review of Systems ROS Statement: Those systems with pertinent positive or pertinent negative responses have been documented in the HPI. ROS Other: All systems not noted in ROS Statement are negative. Past Medical History Past Medical History: Osteoarthritis (OA), Sleep Apnea/CPAP/BIPAP Additional Past Medical History / Comment(s): blood in stool, auto immune disease, "staph in infection after knee surgery at age 20" does not know what organism History of Any Multi-Drug Resistant Organisms: None Reported Past Surgical History: Back Surgery, Hernia Repair, Orthopedic Surgery Additional Past Surgical History / Comment(s): shruthi knee "partial replacements", total 5 knee surgeries, growth from throat removed, cyst removed from back Past Anesthesia/Blood Transfusion Reactions: No Reported Reaction Past Psychological History: No Psychological Hx Reported Smoking Status: Former smoker Past Alcohol Use History: Occasional Past Drug Use History: None Reported - Past Family History Mother Family Medical History: Pulmonary Embolus, Vascular Disorder Additional Family Medical History / Comment(s): mother and father General Exam Limitations: no limitations General appearance: alert, in no apparent distress Head exam: Present: atraumatic, normocephalic, normal inspection Eye exam: Present: normal appearance, PERRL, EOMI. Absent: scleral icterus, conjunctival injection, periorbital swelling ENT exam: Present: normal exam, normal oropharynx, mucous membranes moist, TM's normal bilaterally Neck exam: Present: normal inspection, full ROM. Absent: tenderness, meningismus, lymphadenopathy Respiratory exam: Present: normal lung sounds bilaterally. Absent: respiratory distress, wheezes, rales, rhonchi, stridor Cardiovascular Exam: Present: regular rate, normal rhythm, normal heart sounds. Absent: systolic murmur, diastolic murmur, rubs, gallop, clicks Course Vital Signs 04/29/22 08:57 Temperature 98.3 F Pulse Rate 80 Respiratory 18 Rate Blood Pressure 138/94 O2 Sat by Pulse 98 Oximetry Medical Decision Making - Medical Decision Making Patient is COVID-19 positive. Patient is receiving monoclonal bodies. Patient discharged in stable condition return parameters were discussed. Disposition Clinical Impression: COVID-19 Disposition: HOME SELF-CARE Condition: Stable Instructions (If sedation given, give patient instructions): COVID-19 (Coronavirus Disease 2019) (ED) Additional Instructions: Please return to the Emergency Department if symptoms worsen or any other concerns. Is patient prescribed a controlled substance at d/c from ED?: No Referrals: Pamela Aguilar DO [Primary Care Provider] - 1-2 days Time of Disposition: 09:09
[2022-04-29] MEDS ORDERED: BEBTELOVIMAB (EUA) 175 MG/2 ML VIAL IV ONE (10:00)
[2022-04-29 10:29] VITALS: BP 133/93; PULSE 90; RESP 16
== END 2022-04-29 10:38 | disposition home or self-care (01) ==
LOC: EC 08:56
DX: U07.1 COVID-19 (principal); Z87.891 Personal history of nicotine dependence; Z88.0 Allergy status to penicillin
CPT/HCPCS: 99283; Q0222